=== PATIENT | female | born 1945 | race Caucasian/White ===

== ENCOUNTER 2017-06-16 05:57 | Inpatient (IN) ==
[2017-06-16] MEDS ORDERED: FUROSEMIDE 40 MG/4 ML INJECTION IVP ONE (06:33)
[2017-06-16] MEDS: SALINE FLUSH 10ml SYRINGE IVF PRN (06:45)
--- NOTE | 2017-06-16 06:57 | Emergency Department Report ---
SOB HPI - General Chief Complaint: Shortness of Breath/Dyspnea Stated Complaint: diff beathing Time Seen by Provider: 06/16/17 06:06 Source: patient, family, old records reviewed Mode of arrival: ambulatory - History of Present Illness 71yo woman represented to the ER for evaluation of dyspnea. Pt was seen in this facility 4 days ago; was dx'ed with a COPD exacerbation and treated appropriately. Pt had an extensive workup at that time, including for a PE. Pt states that she was satisfied with her care on Thursday and left feeling much better than before. Pt represented last evening for recurrent dyspnea; after discussion with pt regarding expectations and potential work up, pt declined a full workup. Pt felt much better after a single neb and discussion of increasing her prednisone. She felt like the bug spray or powder at her home was making her sx worse; pt went to stay with son overnight. This AM, pt states that she was actually dyspneic prior to leaving the ER, she really didn't say that she didn't want a full workup, and she feels that she was not actually evaluated or treated last night, especially in comparison to how she was treated on Thursday. Pt feels that 2 hours in the ER, just wasn't enough to do anything, and she had blood work x2 on Sat. Pt recently changed from Dr. Marin to Dr. Novoa and ennumerates all of the reasons why she doesn' t like Dr. Marin. She recently changed from Dr. Douglas to Dr. Polanco, and is bitter about Dr. Douglas's change in practice. When asked about her frequent physician changes, pt states that she doesn't change physicians, but then relates how she has made similar changes in the past due to dissatisfaction. Pt states that she had a PFT ~ a decade ago. Dr. Douglas sent pt for repeat PFTs in the last few years; pt went, but 'the new tech didn't know what he was doing and couldn't complete the testing.' Pt never went back to complete PFTs. Pt presents to the ER this AM with her son. Both are agitated, angry, and demanding. Son feels that pt was not treated appropriately; pt states that she is dyspneic at rest and cannot walk without losing breath. Both want pt ' thoroughly' evaluated and treated. MD Complaint: shortness of breath Onset (ago): day(s) Severity: moderate Consistency/Duration: intermittent Relieving factors: oxygen, bronchodilators, medication Exacerbating factors: lying flat, exertion, movement, coughing Known history of: COPD, congestive heart failure Treatment prior to arrival: bronchodilator - Related Data Home oxygen amount: none Home Medications Medication Instructions Recorded Confirmed Clopidogrel Bisulfate [Plavix] 75 mg PO DAILY #0 06/25/09 06/16/17 Esomeprazole Magnesium [Nexium] 40 mg PO DAILY #0 06/25/09 06/16/17 Metoprolol Succinate [Toprol Xl] 100 mg PO HS #0 06/25/09 06/16/17 Nitroglycerin [Nitrostat] 0.4 mg SL PRN #0 06/25/09 06/16/17 hydroCHLOROthiazide 25 mg PO DAILY #0 06/25/09 06/16/17 [Hydrochlorothiazide] Aspirin [Aspir 81] 81 mg PO DAILY #30 tab 06/25/16 06/16/17 Losartan [Cozaar] 50 mg PO HS 06/13/17 06/16/17 [place]-3/Dha/Epa/Fish Oil [Fish Oil 1 each PO DAILY 06/13/17 06/16/17 1,000 mg Softgel] Previous Rx's Medication Instructions Recorded predniSONE [Prednisone] 40 mg PO AC #10 tab 06/13/17 Allergies Allergy/AdvReac Type Severity Reaction Status Date / Time dexlansoprazole Allergy Intermediate Verified 06/16/17 03:27 [From Dexilant] doxycycline Allergy Intermediate Rash Verified 06/16/17 03:27 tramadol Allergy Intermediate MOUTH RASH Verified 06/16/17 03:27 ezetimibe Allergy Mild TONGUE SORE Verified 06/16/17 03:27 Penicillins Allergy Mild TONGUE Verified 06/16/17 03:27 GETS SORE amoxicillin Allergy Unknown Verified 06/16/17 03:27 ciprofloxacin Allergy Unknown COLD Verified 06/16/17 03:27 estradiol Allergy Unknown Verified 06/16/17 03:27 gemfibrozil Allergy Unknown Verified 06/16/17 03:27 lisinopril Allergy Unknown COUGH Verified 06/16/17 03:27 terconazole Allergy Unknown "BREAK OUT" Verified 06/16/17 03:27 clindamycin AdvReac Severe hurts Verified 06/16/17 03:27 stomach azithromycin AdvReac Intermediate Diarrhea Verified 06/16/17 03:27 clotrimazole AdvReac Intermediate Verified 06/16/17 03:27 pantoprazole AdvReac Intermediate Headache Verified 06/16/17 03:27 fenofibrate AdvReac Mild "SICK AT Verified 06/16/17 03:27 STOMACH" metronidazole AdvReac Mild "DIZZY, Verified 06/16/17 03:27 LOW BLOOD PRESSURE" niacin AdvReac Mild "TIRED, Verified 06/16/17 03:27 FEEL BAD" propoxyphene AdvReac Mild "HURTS Verified 06/16/17 03:27 STOMACH simvastatin AdvReac Mild "TIRED, Verified 06/16/17 03:27 FACE BREAK OUT" pitavastatin [From Livalo] AdvReac Unknown Verified 06/16/17 03:27 Cephalexin Monohydrate Allergy Unknown Uncoded 06/16/17 03:27 rosuvastatin calcium Allergy Unknown Uncoded 06/16/17 03:27 trichloroacetic acid Allergy Unknown Uncoded 06/16/17 03:27 Unclassified Drug AdvReac Unknown "ZETREA" Uncoded 06/16/17 03:27 Unknown Drug Review of Systems All systems: reviewed and negative except as stated Cardiovascular: Reports: as per HPI, dyspnea on exertion Respiratory: Reports: as per HPI, dyspnea PFSH Patient Stated Medical History Hypertension Yes Myocardial Infarction Yes Chronic Obstructive Pulmonary Yes Disease (COPD) Gastroesophageal Reflux Yes Disease Post Menopausal Yes Medical History Updates: Allergic rhinitis Surgical History: Appendectomy. Tubal ligation. Cardiac catheterization - Social History Smoking status: Former smoker Physical Exam - Limitations Limitations: no limitations - General General appearance: alert, in no apparent distress, obese - Normal Exams: Head:: Normocephalic without trauma Eyes:: Pupils are PERRLA w/ EOMI, No scleral icterus, irritation, or foreign bodies noted ENMT:: No facial trauma, nasal exudates, pharyngeal erythema, or exudates are noted Neck:: Full range of motion, without adenopathy Lymphatic:: No lymphadenopathy Musculoskeletal:: No tenderness, or deformity noted Integumentary:: No rashes, hives, or bruising noted Neurological:: Patient is alert, and oriented Psychiatric:: Patient exhibits, appropriate attention - Chest Chest inspection: Present: normal inspection, symmetric chest wall rise, rash ( sebhorreic keratoses). Absent: tenderness - Respiratory Respiratory exam: Present: crackles (Coarse throughout both lung bases). Absent : normal lung sounds bilaterally, respiratory distress, wheezes, prolonged expiratory phase - Cardiovascular Cardiovascular exam: Present: regular rate, normal rhythm, normal heart sounds, +S1, +S2. Absent: systolic murmur, diastolic murmur, +S3, +S4 - Abdominal Exam Abdominal exam: Present: soft, normal bowel sounds. Absent: distention, tenderness, guarding, rebound, rigidity, psoas sign, obturator sign, Ramírez's sign, hernia Course - Consultations Consultation #1: Dr. Novoa: Recommends contacting hospitalist for admission for further eval, since this is pts third visit to the ER. Time: 08:50 Consultation #2: Hospitalist: En route to hospital; will admit. Time: 08:55 Vital Signs Temperature 98.0 F 06/16/17 06:06 Pulse Rate 75 06/16/17 06:06 Respiratory Rate 26 H 06/16/17 06:06 Blood Pressure 184/81 H 06/16/17 06:06 Pulse Oximetry 90 06/16/17 06:06 Temperature 98.0 F 06/16/17 06:06 Pulse Rate 71 06/16/17 08:38 Respiratory Rate 32 H 06/16/17 08:38 Blood Pressure 127/64 06/16/17 08:38 Pulse Oximetry 96 06/16/17 08:38 Shortness of Breath/Dyspnea - MDM Narrative Medical decision making narrative: Long discussion held with pt and son regarding her prior dx, previous tx, ddx, expectations, and plan of care. Discussed case with Dr. Millan, who repeatedly asserted his discussion with pt regarding extent of workup and pts insistence on treatment without repeating the work up. His documentation from that encounter is consistent with his statement. Pts son was not present for that encounter. Given pts other dx's, the timing of the encounter (late at night), and pts medical condition (either truly dyspneic, or anxious regarding her feeling of dyspnea), it is possible that there was 'miscommunication' with pt regarding the extent of her work up, but it is more likely that pt does not remember her choice. It is also possible that pt has an underlying personality disorder that would predispose her to blame her physician for her condition ( see pts statements regarding frequently changing physicians and the reasons for doing so). After discussion with pt and son and thorough PE, will evaluate pt for causes of her dyspnea. Pt does not have any s/s of Pulm Emb at this time, and is taking plavix. Will treat empirically for CHF exacerbation, given pts basilar crackles and dyspnea not responding to steroids/nebs. It is likely that pts treatment for COPD exacerbation has worsened her CHF acutely. Pt does not take a loop diuretic at home. Pt and son voiced understanding of dx, prognosis, tx, and f/u need. - Differential Diagnosis Likely: acute exacerbation of chronic obstructive airways disease, congestive heart failure (Medication nonadherence), community acquired pneumonia - Medical Records Attestation: I reviewed the patient's medical records. - Lab Data Attestation: I reviewed the patient's lab results. Result diagrams: 06/16/17 07:17 06/16/17 07:17 Lab Results 06/16/17 06/16/17 06/16/17 Range/Units 07:17 07:17 07:24 WBC 12.8 H (4.5-11.0) T/MM3 RBC 4.58 (4.00-5.20) M/MM3 Hgb 12.2 (12-16) GM/DL Hct 38.8 (36-46) % MCV 84.7 (80-100) UM3 MCH 26.6 (26-34) UUG MCHC 31.4 (31-37) GM/DL RDW Std Deviation 45.9 (36.9-50.2) FL Plt Count 290 (130-400) T/MM3 MPV 10.6 (9.4-12.4) UM3 Immature Gran % (Auto) 0.3 (0.0-0.5) % Neut % (Auto) 78.8 H (33-66) % Lymph % (Auto) 13.8 L (23-45) % [place] % (Auto) 6.7 (0-9.0) % Eos % (Auto) 0.2 (0-4) % Baso % (Auto) 0.2 (0-2) % Neut # 10.1 H (1.8-7.7) T/MM3 Lymph # 1.8 (1-4.8) T/MM3 Morrill # 0.9 H (0-0.8) T/MM3 Eos # 0.0 (0-0.5) T/MM3 Baso # 0.0 (0-0.2) T/MM3 Abs Immat Gran (auto) 0.04 H (0.00-0.03) T/MM3 Turbidity < 20 (0-20) Sodium 144 (134-144) MEQ/L Potassium 3.7 (3.6-5) MEQ/L Chloride 108 H (98-107) MEQ/L Carbon Dioxide 26 (22-30) MEQ/L Anion Gap 10 (5-15) MEQ/L BUN 22.0 H D (7-17) MG/DL Creatinine 0.8 (0.7-1.2) MG/DL GFR Calculation 70 BUN/Creatinine Ratio 28 H (6-26) RATIO Glucose 118 H (65-110) MG/DL Calculated Osmolality 281 H (261-280) MOSM/KG Calcium 9.1 (8.4-10.2) MG/DL Icterus Index < 2 (0-7) Troponin I 0.049 D (0-0.12) ng/ml B-Natriuretic Peptide 2010 H (0-175) pg/mL Specimen Hemolysis < 15 (0-25) Ur Collection Type Urine, clean catch Urine Color Yellow (YELLOW) Urine Clarity Clear Urine pH 5.5 (5.0-8.0) Ur Specific [place] 1.010 L (1.015-1.025) Urine Protein Negative (NEGATIVE) Urine Glucose (UA) Negative (NEGATIVE) Urine Ketones Negative (NEGATIVE) Urine Occult Blood Negative (NEGATIVE) Urine Nitrate Negative (NEGATIVE) Urine Bilirubin Negative (NEGATIVE) Urine Urobilinogen 0.2 (NORMAL) EU/DL Ur Leukocyte Esterase Trace A (NEGATIVE) Urinalysis Comment Microscopic not ind. - Radiology Data Attestation: I reviewed the patient's radiology results. CXR: FINDINGS: Increasing interstitial markings compared to the prior study. Motion artifact obscures the lung [place] on the lateral view. There is no pleural effusion or pneumothorax. The heart size, mediastinal contours and pulmonary vascularity are stable. IMPRESSION: Worsening interstitial markings could represent atypical/viral pneumonia or mild edema. - EKG Data EKG #1 EKG attestation: Yes: I reviewed and interpreted this EKG. EKG shows normal: sinus rhythm, axis, ST-T waves [place]/QRS: LBBB Heart block present: 1st Degree Interpretation: no acute changes Disposition Clinical Impression: CHF exacerbation Qualifiers: Congestive heart failure type: unspecified congestive heart failure type Qualified Code(s): I50.9 - Heart failure, unspecified [place] [facility] [place] Prescriptions: No Action Clopidogrel Bisulfate [Plavix] 75 mg PO DAILY #0 Esomeprazole Magnesium [Nexium] 40 mg PO DAILY #0 [place]-3/Dha/Epa/Fish Oil [Fish Oil 1,000 mg Softgel] 1 each PO DAILY predniSONE [Prednisone] 40 mg PO AC #10 tab hydroCHLOROthiazide [Hydrochlorothiazide] 25 mg PO DAILY #0 Nitroglycerin [Nitrostat] 0.4 mg SL PRN #0 Metoprolol Succinate [Toprol Xl] 100 mg PO HS #0 Aspirin [Aspir 81] 81 mg PO DAILY #30 tab Losartan [Cozaar] 50 mg PO HS Referrals: Tanisha Kennedy MD [Family Provider] - Time of Disposition: 09:16 - Seen By: physician
--- NOTE | 2017-06-16 07:58 | XRay Report ---
INDICATION: Dyspnea PROCEDURE: CHEST 2-VIEWS UPRIGHT (PA & LAT) Encounter: Initial COMPARISON: June 13, 2017 FINDINGS: Increasing interstitial markings compared to the prior study. Motion artifact obscures the lung [place] on the lateral view. There is no pleural effusion or pneumothorax. The heart size, mediastinal contours and pulmonary vascularity are stable. IMPRESSION: Worsening interstitial markings could represent atypical/viral pneumonia or mild edema. .
[2017-06-16 09:55] VITALS: BMI 46.7
--- NOTE | 2017-06-16 10:03 | History & Physical Report ---
<Yazmin Mirza V - Last Filed: 06/16/17 09:56> History of Present Illness Date: 06/16/17 Chief complaint: Dyspnea HPI: Patient is a 71 year old female who has been in the ER three times over the past 4 days for evaluation of acute dyspnea. On Thursday she had labs and CT chest completed. All were needed for acute process. Patient felt much better and was discharged home on prednisone burst and inhalers. She reported that she felt better over the next 24 hours, however, last evening, awoke at about 1 a.m. to have acute dyspnea again. She drove herself to the emergency room where she was reexamined. Initially on arrival, she was reported to be hypoxia with room saturations of 89%. She was given a breathing treatment in which hypoxia improved in room air saturations were 92-96%. Her prednisone was increased to 60 milligrams. She declined further workup and was discharged home. She again today. Becomes increasingly short of breath with exertion thus presenting to the emergency room again for further acute evaluation. Laboratory studies today revealed white count 12.8, hemoglobin 12.2, hematocrit 38.8, neutrophils 70%. REM is 144, potassium 3.8, BUNs 22, creatinine 0.8, glucose 118. Troponin is 0.041, proBNP 2010. Urinalysis is negative. Chest x- ray does reveal worsening interstitial markings. Over the EKG reveals sinus rhythm with left bundle branch block. Patient is noted to be Breathing 30 times a minute. No episodes of hypoxia during emergency room valuation. Garcia continues to become significantly symptomatic with minimal exertion. Given these symptoms. The hospitalist services were contacted and accepted patient for outpatient admission for further observation and workup. Review of Systems All systems PM: 10-point ROS was reviewed, no additional remarkable complaints except - Respiratory Respiratory: Present: as per HPI, cough, dyspnea, dyspnea on exertion PFSH CAD with OR history COPD Hypertension GERD Medical History Updates: Allergic rhinitis Surgical History: Appendectomy. Cholecystectomy. Tonsillectomy. Tubal ligation. Cardiac catheterization. Cardiac stent- 2010 Family History: Father at age 52 of an OR. Mother-dementia. Paternal grandfather at 60 of OR Maternal grandfather in his 60s of acute stroke - Social History Smoking status: Former smoker (, quit 50 years ago) Substance use type: does not use Alcohol intake frequency: does not drink Current residence: Apartment/Private Home Social history: PCP Dr Husam Kennedy Biomed Tech- Dr Novoa Medications Home Medications Medication Instructions Recorded Confirmed Type Clopidogrel Bisulfate [Plavix] 75 mg PO DAILY #0 06/25/09 06/16/17 History Esomeprazole Magnesium [Nexium] 40 mg PO DAILY #0 06/25/09 06/16/17 History Metoprolol Succinate [Toprol Xl] 100 mg PO PM #0 06/25/09 06/16/17 History Nitroglycerin [Nitrostat] 0.4 mg SL PRN #0 06/25/09 06/16/17 History hydroCHLOROthiazide 12.5 mg PO WESA #0 06/25/09 06/16/17 History [Hydrochlorothiazide] Aspirin [Aspir 81] 81 mg PO DAILY #30 tab 06/25/16 06/16/17 History Losartan [Cozaar] 50 mg PO PM 06/13/17 06/16/17 History [place]-3/Dha/Epa/Fish Oil [Fish Oil 1 cap PO DAILY 06/13/17 06/16/17 History 1,000 mg Softgel] Alirocumab [Praluent Pen] 75 mg SQ Q2WKS 06/16/17 06/16/17 History Hydrocodone/APAP 7.5/325 [[place] 1 tab PO Q4H PRN 06/16/17 06/16/17 History 7.5/325] Ipatropium/Albuterol [Combivent 2 puff INH QID PRN 06/16/17 06/16/17 History Respimat Inhaler] Mometasone Furoate [Mometasone 1 spray EA NOSTRIL DAILY PRN 06/16/17 06/16/17 History Furoate] Allergies Allergy/AdvReac Type Severity Reaction Status Date / Time dexlansoprazole Allergy Intermediate Verified 06/16/17 11:45 [From Dexilant] doxycycline Allergy Intermediate Rash Verified 06/16/17 11:45 tramadol Allergy Intermediate MOUTH RASH Verified 06/16/17 11:45 ezetimibe Allergy Mild TONGUE SORE Verified 06/16/17 11:45 Penicillins Allergy Mild TONGUE Verified 06/16/17 11:45 GETS SORE amoxicillin Allergy Unknown Verified 06/16/17 11:45 ciprofloxacin Allergy Unknown COLD Verified 06/16/17 11:45 estradiol Allergy Unknown Verified 06/16/17 11:45 gemfibrozil Allergy Unknown Verified 06/16/17 11:45 lisinopril Allergy Unknown COUGH Verified 06/16/17 11:45 terconazole Allergy Unknown "BREAK OUT" Verified 06/16/17 11:45 clindamycin AdvReac Severe hurts Verified 06/16/17 11:45 stomach azithromycin AdvReac Intermediate Diarrhea Verified 06/16/17 11:45 clotrimazole AdvReac Intermediate Verified 06/16/17 11:45 pantoprazole AdvReac Intermediate Headache Verified 06/16/17 11:45 fenofibrate AdvReac Mild "SICK AT Verified 06/16/17 11:45 STOMACH" metronidazole AdvReac Mild "DIZZY, Verified 06/16/17 11:45 LOW BLOOD PRESSURE" niacin AdvReac Mild "TIRED, Verified 06/16/17 11:45 FEEL BAD" propoxyphene AdvReac Mild "HURTS Verified 06/16/17 11:45 STOMACH simvastatin AdvReac Mild "TIRED, Verified 06/16/17 11:45 FACE BREAK OUT" pitavastatin [From Livalo] AdvReac Unknown Verified 06/16/17 11:45 Cephalexin Monohydrate Allergy Unknown Uncoded 06/16/17 11:45 rosuvastatin calcium Allergy Unknown Uncoded 06/16/17 11:45 trichloroacetic acid Allergy Unknown Uncoded 06/16/17 11:45 Unclassified Drug AdvReac Unknown "ZETREA" Uncoded 06/16/17 11:45 Unknown Drug Exam Vital Signs: Temperature 98.0 F 06/16/17 06:06 Pulse Rate 71 06/16/17 08:38 Respiratory Rate 32 H 06/16/17 08:38 Blood Pressure 127/64 06/16/17 08:38 Pulse Oximetry 96 06/16/17 08:38 Height/Weight/BMI: Height 1.57 m Weight 116.1 kg Body Mass Index 46.7 Results - Labs CBC & Chem 7: 06/16/17 07:17 06/16/17 07:17 Assessment and Plan (1) Dyspnea Current visit: Yes Status: Acute (2) Tachypnea Current visit: Yes Status: Acute DVT Prophylaxis: SCD's Resuscitation Status: Full Code Assessment and Plan: Impression Acute Dyspnea Tachypnea Leukocytosis COPD ?CHF Hypertension Hyperlipidemia CAD OA Plan Admit to outpatient observation for acute dyspnea and tachypnea Will continue with Prednisone 60 mg daily starting now for pulmonary inflammation Schedule DuoNeb QID and Pulmicort BID Obtain ECHO and consult Dr Sommer lucas driving instructor. She was scheduled to see him at the clinic today She was given a one time dose of Lasix 40 mg IV this morning in the ER. Noted to be hypertensive however she has not had usual home medications. Will review meds once reconciled. Suspect mild leukocytosis is secondary to steroid use. Will continue to monitor. SCD to bilateral lower ext for DVT prophylaxis Will discuss further orders and plan of care with attending, Dr Gentile At time of discharge medical care is to return to PCP Dr Husam Kennedy Hospital Course Summary Disclaimer: The visit summary below is not to be considered part of the above Progress Note. Hospital Course: 06/16/17 10:20 Impression Acute Dyspnea Tachypnea Leukocytosis COPD ?CHF Hypertension Hyperlipidemia CAD OA Plan Admit to outpatient observation for acute dyspnea and tachypnea Will continue with Prednisone 60 mg daily starting now for pulmonary inflammation Schedule DuoNeb QID and Pulmicort BID Obtain ECHO and consult Dr Sommer lucas driving instructor. She was scheduled to see him at the clinic today She was given a one time dose of Lasix 40 mg IV this morning in the ER. Noted to be hypertensive however she has not had usual home medications. Will review meds once reconciled. Suspect mild leukocytosis is secondary to steroid use. Will continue to monitor. SCD to bilateral lower ext for DVT prophylaxis Will discuss further orders and plan of care with attending, Dr Gentile At time of discharge medical care is to return to PCP Dr Husam Kennedy <Grey Gentile - Last Filed: 06/16/17 18:07> History of Present Illness Date: 06/16/17 [facility] Patient Stated Medical History Hypertension Yes Myocardial Infarction Yes: X3 Chronic Obstructive Pulmonary Yes Disease (COPD) Gastroesophageal Reflux Yes Disease Post Menopausal Yes Exam Vital Signs: Temperature 97.0 F 06/16/17 15:16 Pulse Rate 75 06/16/17 15:16 Respiratory Rate 18 06/16/17 15:42 Blood Pressure 135/63 06/16/17 15:16 Pulse Oximetry 94 06/16/17 15:16 Height/Weight/BMI: Height 1.57 m Weight 116.1 kg Body Mass Index 46.7 Results - Labs CBC & Chem 7: 06/16/17 07:17 06/16/17 07:17 Assessment and Plan (1) Dyspnea Current visit: Yes Status: Acute (2) Tachypnea Current visit: Yes Status: Acute Assessment and Plan: Impression Acute Dyspnea Tachypnea Leukocytosis COPD ?CHF Hypertension Hyperlipidemia CAD OA Morbid obesity with BMI 46.8 Have independently interviewed and examined patient. Chart reviewed. Case discussed with ED physician and my SHAPER SET UP OPERATOR. Care plan developed with my supervision ; agree with above. Patient has been having increasing dyspnea with exertion for the past several days. See in ED on 06/13 secondary to SOA. Treated and symptoms improved. Declined admission at that time as feeling better in ED. Since then, continues to be very SOA. Breathing worse with activities. Chest feels full and heavy. Very minimal cough. No chest congestion or sputum. Denies pain with breathing. No f/c. Can't tell if she is having increased edema as reports legs always with some swelling (no marked increase that she is aware of). Was seen again in ED yesterday-treated and felt better. However, bu the time she returned home, was completely out of breath. Reports she drove over to her son's and then ultimately represented to ED for reevaluation of her extreme dyspnea. Lungs: decreased breath sounds bilaterally. Expiratory phase prolonged. No wheezes or cough with forced expiration. Little air movement. CV: regular AB; soft Obese nt/nd BS present MSE: awake alert appropriate Plan: OBS for further evaluation of her cardiopulmonary status. Neb treatments of DuoNeb and budesonide. Continue Prednisone started in ED. Add Mucinex and Acapella. Continue home medications. Consult Dr Novoa for cardiac evaluation. SCD for DVT prevention (and to help minimize edema). Monitor lab. Full code as per her requests. Care to return to Dr Kennedy at time of discharge from [facility] [place] Hospital Course Summary Disclaimer: The visit summary below is not to be considered part of the above Progress Note.
[2017-06-16] MEDS: ALBUTEROL/IPRATROPIUM 2.5mg-0.5mg/3ml NEB AEROSOL SCH ×3 (10:40→19:22)
--- NOTE | 2017-06-16 11:46 | Cardiology Consult Note ---
History of Present Illness Consult date: 06/16/17 <Ange Holden - 06/16/17 11:50> Requesting physician: Grey Gentile <Ange Holden M - 06/16/17 11:50> Consult reason: congestive heart failure <Ange Holden - 06/16/17 11:50> Chief complaint: Dyspnea <Ange Holden - 06/16/17 11:50> History of present illness: Glenys is a 71 year old female who is known to Dr. Novoa with a history of CAD, HTN and HLD who was last seen in clinic in November for preprocedural cardiac exam because she reported having an PA S/P her last knee surgery. Her last heart cath was performed by Dr. Sidney Marin 06/25/2016 and showed EF 60%, RCA 60-70%, OM <50%, LAD 20-30%, Ostium 40-50%. Last echo was done on 02/12/2011 and showed EF 56%, trace AI, trivial TI, PA pressure of 21 mmHg. She has been in the ED three times over the past 4 days for evaluation of acute dyspnea. On Thursday she had labs and CT chest completed. All were needed for acute process. Patient felt much better and was discharged home on prednisone burst and inhalers. She reported that she felt better over the next 24 hours, however , last evening, awoke at about 1 a.m. to have acute dyspnea again. She drove herself to the emergency room where she was reexamined. Initially on arrival, she was reported to be hypoxia with room saturations of 89%. She was given a breathing treatment in which hypoxia improved in room air saturations were 92-96 %. Her prednisone was increased to 60 milligrams. She declined further workup and was discharged home. She again today. Becomes increasingly short of breath with exertion thus presenting to the emergency room again for further acute evaluation. Laboratory studies today revealed white count 12.8, hemoglobin 12.2, hematocrit 38.8, neutrophils 70%. REM is 144, potassium 3.8, BUNs 22, creatinine 0.8, glucose 118. Troponin is 0.041, proBNP 2010. Urinalysis is negative. Chest x- ray does reveal worsening interstitial markings. The EKG reveals sinus rhythm with left bundle branch block. The hospitalist services were contacted and accepted patient for outpatient admission for further observation and workup. Dr. Novoa is being consulted for evaluation of CAD, CHF and hypoxia. <Ange Holden 06/16/17 11:50> Review of Systems - Constitutional Constitutional: Absent: chills, fever(s) <Ange Holden 06/16/17 16:37> - EENMT Eyes: Absent: change in vision <Ange Holden 06/16/17 16:37> Balance: Absent: vertigo <Ange Holden 06/16/17 16:37> Mouth/Throat: Absent: sore throat, scratchy throat <Ange Holden 06/16/17 16:37> - Cardiovascular Cardiovascular: Present: chest pain, dyspnea on exertion. Absent: palpitations , syncope <Ange Holden 06/16/17 16:37> - Respiratory Respiratory: Present: dyspnea. Absent: cough <Ange Holden 06/16/17 16:37 > - Gastrointestinal Gastrointestinal: Absent: diarrhea, nausea, vomiting <Ange Holden 16:37> - Genitourinary Genitourinary: Absent: dysuria <Ange Holden 06/16/17 16:37> - Neurological Neurological: Absent: dizziness <Ange Holden 06/16/17 16:37> - Endocrine Endocrine: Absent: palpitations <Ange Holden 06/16/17 16:37> [facility] Patient Stated Medical History Hypertension Yes Myocardial Infarction Yes: X3 Chronic Obstructive Pulmonary Yes Disease (COPD) Gastroesophageal Reflux Yes Disease Post Menopausal Yes <Ange Holden 06/16/17 11:50> Medical History Updates: Asthmas. Allergic rhinitis. CAD. HTN. HLD < Ange Holden 06/16/17 11:50> Surgical History: Appendectomy. Cholecystectomy. Tonsillectomy. Tubal ligation. Cardiac catheterization. Cardiac stent- 2010 <Ange Holden 11:50> Family History: Father at age 52 of an PA. Mother-dementia. Paternal grandfather at 60 of PA Maternal grandfather in his 60s of acute stroke <Ange Holden /26/17 11:50> - Social History Smoking status: Former smoker <Ange Holden 06/16/17 11:50> Substance use type: does not use <Ange Holden 06/16/17 11:50> Alcohol intake frequency: does not drink <Ange Holden 06/16/17 11:50> Housing: apartment <Ange Holden 06/16/17 11:50> Household members: none <Ange Holden 06/16/17 11:50> Current occupational status: retired <Ange Holden 06/16/17 11:50> Current residence: Apartment/Private Home <Ange Holden 06/16/17 11:50> Medications Home Medications Medication Instructions Recorded Confirmed Type Clopidogrel Bisulfate [Plavix] 75 mg PO DAILY #0 06/25/09 06/16/17 History Esomeprazole Magnesium [Nexium] 40 mg PO DAILY #0 06/25/09 06/16/17 History Metoprolol Succinate [Toprol Xl] 100 mg PO PM #0 06/25/09 06/16/17 History Nitroglycerin [Nitrostat] 0.4 mg SL PRN #0 06/25/09 06/16/17 History hydroCHLOROthiazide 12.5 mg PO WESA #0 06/25/09 06/16/17 History [Hydrochlorothiazide] Aspirin [Aspir 81] 81 mg PO DAILY #30 tab 06/25/16 06/16/17 History Losartan [Cozaar] 50 mg PO PM 06/13/17 06/16/17 History [place]-3/Dha/Epa/Fish Oil [Fish Oil 1 cap PO DAILY 06/13/17 06/16/17 History 1,000 mg Softgel] Alirocumab [Praluent Pen] 75 mg SQ Q2WKS 06/16/17 06/16/17 History Hydrocodone/APAP 7.5/325 [[place] 1 tab PO Q4H PRN 06/16/17 06/16/17 History 7.5/325] Ipatropium/Albuterol [Combivent 2 puff INH QID PRN 06/16/17 06/16/17 History Respimat Inhaler] Mometasone Furoate [Mometasone 1 spray EA NOSTRIL DAILY PRN 06/16/17 06/16/17 History Furoate] <Vickie Novoain - 06/18/17 13:26> Allergies Allergy/AdvReac Type Severity Reaction Status Date / Time dexlansoprazole Allergy Intermediate Verified 06/16/17 11:45 [From Dexilant] doxycycline Allergy Intermediate Rash Verified 06/16/17 11:45 tramadol Allergy Intermediate MOUTH RASH Verified 06/16/17 11:45 ezetimibe Allergy Mild TONGUE SORE Verified 06/16/17 11:45 Penicillins Allergy Mild TONGUE Verified 06/16/17 11:45 GETS SORE amoxicillin Allergy Unknown Verified 06/16/17 11:45 ciprofloxacin Allergy Unknown COLD Verified 06/16/17 11:45 estradiol Allergy Unknown Verified 06/16/17 11:45 gemfibrozil Allergy Unknown Verified 06/16/17 11:45 lisinopril Allergy Unknown COUGH Verified 06/16/17 11:45 terconazole Allergy Unknown "BREAK OUT" Verified 06/16/17 11:45 clindamycin AdvReac Severe hurts Verified 06/16/17 11:45 stomach azithromycin AdvReac Intermediate Diarrhea Verified 06/16/17 11:45 clotrimazole AdvReac Intermediate Verified 06/16/17 11:45 pantoprazole AdvReac Intermediate Headache Verified 06/16/17 11:45 fenofibrate AdvReac Mild "SICK AT Verified 06/16/17 11:45 STOMACH" metronidazole AdvReac Mild "DIZZY, Verified 06/16/17 11:45 LOW BLOOD PRESSURE" niacin AdvReac Mild "TIRED, Verified 06/16/17 11:45 FEEL BAD" propoxyphene AdvReac Mild "HURTS Verified 06/16/17 11:45 STOMACH simvastatin AdvReac Mild "TIRED, Verified 06/16/17 11:45 FACE BREAK OUT" pitavastatin [From Livalo] AdvReac Unknown Verified 06/16/17 11:45 Cephalexin Monohydrate Allergy Unknown Uncoded 06/16/17 11:45 rosuvastatin calcium Allergy Unknown Uncoded 06/16/17 11:45 trichloroacetic acid Allergy Unknown Uncoded 06/16/17 11:45 Unclassified Drug AdvReac Unknown "ZETREA" Uncoded 06/16/17 11:45 Unknown Drug <Roman Novoa - 06/18/17 13:26> Exam Vital signs: Temperature 97.5 F 06/18/17 11:26 Pulse Rate 74 06/18/17 11:26 Respiratory Rate 18 06/18/17 11:26 Blood Pressure 115/65 06/18/17 11:26 Pulse Oximetry 91 06/18/17 11:26 <Rmoan Novoa - 06/18/17 13:26> Temperature 96.8 F 06/16/17 10:09 Pulse Rate 67 06/16/17 10:59 Respiratory Rate 20 06/16/17 10:45 Blood Pressure 170/71 H 06/16/17 10:09 Pulse Oximetry 99 06/16/17 10:45 <Ange Holden 06/16/17 11:50> - Constitutional no acute distress, obese, cooperative <Ange Holden 06/16/17 16:37> - Routine HEENT Exam Head: Present: normocephalic <Ange Holden 06/16/17 16:37> ENT: Present: mucous membranes moist <Ange Holden 06/16/17 16:37> - Routine Neck Exam Absent: JVD, carotid bruit <Ange Holden 06/16/17 16:37> - Routine Chest/Breast/Axilla Exam Chest wall: Present: tenderness <Ange Holden [facility] 06/16/17 16:37> - Routine Respiratory Exam Present: CTA bilaterally, rales (bibasilar). Absent: wheezes <Ange Holden [facility] 06/16/17 16:37> - Routine Cardiovascular Exam Present: RRR, no murmur. Absent: JVD <Ange Holden [facility] 06/16/17 16:37> - Routine Abdominal Exam Present: soft, normoactive bowel sounds <Ange Holden [facility] 06/16/17 16:37> - Routine Extremities Exam Present: edema <Ange Holden [facility] 06/16/17 16:37> - Routine Skin Exam Present: intact, dry, warm <Ange Holden 06/16/17 16:37> - Routine Neurological Exam Present: alert, oriented X3 <Ange Holden 06/16/17 16:37> - Routine Psychiatric Exam Present: normal affect, normal thought process <Ange Holden M - 06/16/17 16: 37> Results 06/18/17 04:22 06/18/17 04:22 <Roman Novoa - 06/18/17 13:26> Cardiac Enzymes 06/17/17 06/17/17 Range/Units 17:38 23:26 Troponin I 1.430 H 1.140 H (0-0.12) ng/ml CBC 06/18/17 Range/Units 04:22 WBC 15.3 H (4.5-11.0) T/MM3 RBC 4.87 (4.00-5.20) M/MM3 Hgb 13.1 D (12-16) GM/DL Hct 40.3 D (36-46) % Plt Count 361 (130-400) T/MM3 Neut # (Auto) Not performed Lymph # (Auto) Not performed Mineral # (Auto) Not performed Eos # (Auto) Not performed Baso # (Auto) Not performed Comprehensive Metabolic Panel 06/18/17 Range/Units 04:22 Sodium 141 (134-144) MEQ/L Potassium 3.6 (3.6-5) MEQ/L Chloride 99 (98-107) MEQ/L Carbon Dioxide 31 H (22-30) MEQ/L BUN 28.0 H (7-17) MG/DL Creatinine 0.9 (0.7-1.2) MG/DL Glucose 119 H (65-110) MG/DL Calcium 8.4 (8.4-10.2) MG/DL Intake and Output 06/17/17 06/18/17 06/18/17 22:59 06:59 14:59 Intake Total 350 / 350 150 / 150 640 / 640 Output Total 1515 / 1515 1150 / 1150 125 / 125 Balance -1165 / -1165 -1000 / -1000 515 / 515 Intake: Oral 350 / 350 150 / 150 640 / 640 Output: Urine Amount (Catheter) 1515 / 1515 1150 / 1150 125 / 125 Other: Urine Appearance Clear Clear Clear Urine Color Yellow Yellow Yellow # Voids 1 Weight 112.9 kg 112 kg Patient Weight 06/19/17 06:59 Weight 112 kg <Roman Novoa - 06/18/17 13:26> Intake and Output 06/15/17 06/16/17 06/16/17 22:59 06:59 14:59 Other: Weight 255 lb 15.307 oz Patient Weight 06/17/17 06:59 Weight 255 lb 15.307 oz <Ange Holden - 06/16/17 11:50> - Imaging and Cardiology Echo: report reviewed <Ange Holden - 06/16/17 16:37> EKG results: image reviewed <Ange Holden - 06/16/17 16:37> Imaging & Cardiology Narrative: Date of Exam: 06/16/17 Type of Exam(s): US echo doppler complete . DATE OF PROCEDURE: June 16, 2017 cc: Office, primary care physician, Dr. Grey Gentile DESCRIPTION This is a two-dimensional echo with spectral Doppler, color-flow and M-mode. It was obtained in a patient with dyspnea. Left atrium is dilated. Left ventricle end-diastolic dimension is normal. Left ventricle wall thickness is increased. LV systolic function is normal with ejection fraction of 61%. Right atrium is dilated. Right ventricle is normal. Aortic root dimension is normal. Mitral annulus is calcified. Mitral valve leaflets are normal with moderate mitral regurgitation. Aortic valve shows fibrocalcific changes with mild restriction on opening motion. Transaortic velocities are increased with peak velocity of 2.68 meters per second with peak gradient of 29 and mean gradient of 11. The aortic valve area was calculated at 1.28 cm2. There is mild aortic insufficiency present. Tricuspid valve shows mild tricuspid regurgitation with mild pulmonary hypertension with estimated pulmonary artery systolic pressure of 39. Pulmonary valve shows no pulmonary insufficiency. There is no pericardial effusion. IMPRESSION 1. Normal LV systolic function with ejection fraction of 61%. 2. Biatrial dilation. 3. Left ventricular hypertrophy. 4. Mitral annulus calcification with moderate mitral regurgitation. 5. [id number] aortic stenosis with a valve area of 1.28 cm2 with mild aortic insufficiency. 6. Mild tricuspid regurgitation with mild pulmonary hypertension with estimated pulmonary artery systolic pressure of 39. 06/16/17 16:34 <Ange Holden - 06/16/17 16:37> EKG interpretations - Dysrhythmias Sinus rhythms and dysrhythmias: sinus rhythm <Ange Holden 06/16/17 16:37> - Blocks, axis, hypertrophy, ST abn AV and intraventricular conduction: left bundle branch block (fixed/intermittent , complete/incomplete) <Ange Holden - 06/16/17 16:37> Assessment and Plan - Attestation Attestation Narrative: 06/18/17 13:26 Recommendation After examining the patient I agree with the above assessment. I am involved in the formulation of the patient's plan of care. <Roman Novoa - 06/18/17 13:26> - Assessment and Plan (1) Dyspnea Current visit: Yes Status: Acute (2) Atherosclerotic heart disease of [place] coronary artery without angina pectoris Current visit: Yes Status: Acute (3) Essential (primary) hypertension Current visit: Yes Status: Acute (4) Mixed hyperlipidemia Current visit: Yes Status: Acute (5) Unstable angina Current visit: Yes Status: Acute (6) Ischemic cardiomyopathy Problem details: History of PA Current visit: Yes Status: Acute (7) Systolic heart failure Current visit: Yes Status: Acute (8) Atrial fibrillation Current visit: Yes Status: Acute (9) NSTEMI (non-ST elevated myocardial infarction) Current visit: Yes Status: Acute <Roman Novoa - 06/18/17 13:26> (1) Ischemic cardiomyopathy (2) Systolic heart failure (3) Atrial fibrillation (4) Unstable angina Current visit: Yes Status: Acute She reports chest tightness and pressure with dyspnea ongoing since Thursday. NPO after midnight for left heart cath in AM (5) Dyspnea Current visit: Yes Status: Acute Reports Acute dyspnea that has only begun on Thursday this past week. She reports chest tightness and pressure (6) Atherosclerotic heart disease of [place] coronary artery without angina pectoris Current visit: Yes Status: Acute Cath images reviewed from last heart cath 06/25/2016. Has CAD, needs repeat heart cath. Lovenox 1mg/kg SQ X1 this evening. Continue Plavix and Aspirin. (7) Essential (primary) hypertension Current visit: Yes Status: Acute Continue home BB, losartan and HCTZ (8) Mixed hyperlipidemia Current visit: Yes Status: Acute <Ange Holden - 06/17/17 13:44> Hospital Course Summary Disclaimer: The visit summary below is not to be considered part of the above Progress Note. <Roman Novoa - 06/18/17 13:26> The visit summary below is not to be considered part of the above Progress Note. <Ange Holden - 06/16/17 11:50> Hospital Course: 06/16/17 10:20 Impression Acute Dyspnea Tachypnea Leukocytosis COPD ?CHF Hypertension Hyperlipidemia CAD OA Plan Admit to outpatient observation for acute dyspnea and tachypnea Will continue with Prednisone 60 mg daily starting now for pulmonary inflammation Schedule DuoNeb QID and Pulmicort BID Obtain ECHO and consult Dr Novoa patients mental health professional. She was scheduled to see him at the clinic today She was given a one time dose of Lasix 40 mg IV this morning in the ER. Noted to be hypertensive however she has not had usual home medications. Will review meds once reconciled. Suspect mild leukocytosis is secondary to steroid use. Will continue to monitor. SCD to bilateral lower ext for DVT prophylaxis Will discuss further orders and plan of care with attending, Dr Gentile At time of discharge medical care is to return to PCP Dr Husam Kennedy 06/16/17 Cardiology Unstable Angina:She reports chest tightness and pressure with dyspnea ongoing since Thursday Dyspnea:Reports Acute dyspnea that has only begun on Thursday this past week. CAD: Cath images reviewed from last heart cath 06/25/2016. Has CAD, needs repeat heart cath. Lovenox 1mg/kg SQ X1 this evening. Continue Plavix and Aspirin. NPO after midnight for left heart cath in AM 06/16/17 16:32 <Ange Holden - 06/16/17 16:37>
[2017-06-16] MEDS: PredniSONE 20 MG TABLET PO SCH (12:20)
--- NOTE | 2017-06-16 12:56 | Echocardiogram ---
. DATE OF PROCEDURE: June 16, 2017 cc: Office, primary care physician, Dr. Grey Gentile DESCRIPTION This is a two-dimensional echo with spectral Doppler, color-flow and M-mode. It was obtained in a patient with dyspnea. Left atrium is dilated. Left ventricle end-diastolic dimension is normal. Left ventricle wall thickness is increased. LV systolic function is normal with ejection fraction of 61%. Right atrium is dilated. Right ventricle is normal. Aortic root dimension is normal. Mitral annulus is calcified. Mitral valve leaflets are normal with moderate mitral regurgitation. Aortic valve shows fibrocalcific changes with mild restriction on opening motion. Transaortic velocities are increased with peak velocity of 2.68 meters per second with peak gradient of 29 and mean gradient of 11. The aortic valve area was calculated at 1.28 cm2. There is mild aortic insufficiency present. Tricuspid valve shows mild tricuspid regurgitation with mild pulmonary hypertension with estimated pulmonary artery systolic pressure of 39. Pulmonary valve shows no pulmonary insufficiency. There is no pericardial effusion. IMPRESSION 1. Normal LV systolic function with ejection fraction of 61%. 2. Biatrial dilation. 3. Left ventricular hypertrophy. 4. Mitral annulus calcification with moderate mitral regurgitation. 5. Zuxf-[id number]-[id number] aortic stenosis with a valve area of 1.28 cm2 with mild aortic insufficiency. 6. Mild tricuspid regurgitation with mild pulmonary hypertension with estimated pulmonary artery systolic pressure of 39. MTDD
[2017-06-16] MEDS: GUAIFENESIN/D-METHORPHAN 600mg/30mg TABLET PO SCH (16:22)
[2017-06-16] MEDS ORDERED: ENOXAPARIN 120 MG/0.8 ML INJECTION SQ ONE (16:30)
[2017-06-16] MEDS: NITROGLYCERIN 2% OINTMENT 1gm PACKET TP SCH (16:51)
[2017-06-16] MEDS ORDERED: HYDROCODONE/APAP 7.5 MG/325 MG TABLET PO PRN (17:41)
[2017-06-16] MEDS: BUDESONIDE INH.SOLN 0.5mg/2ml NEB AEROSOL SCH (19:22)
[2017-06-16] MEDS ORDERED: LOSARTAN 50 MG TABLET PO SCH (20:00)
[2017-06-16] MEDS: FUROSEMIDE 40 MG/4 ML INJECTION IVP SCH (20:15)
[2017-06-16] MEDS ORDERED: DiltiaZEM 25 MG/5 ML INJECTION IVP ONE (21:32)
[2017-06-16] MEDS ORDERED: AMIODARONE 150 MG in NS 100 ML IV ONE (21:33)
[2017-06-16] MEDS ORDERED: AMIODARONE 900 MG in NS 500ml 500 ML IV SCH (21:45)
[2017-06-16] MEDS ORDERED: DiltiaZEM Drip 125 MG in NS 125 ML IV SCH (21:45)
[2017-06-16] MEDS ORDERED: MORPHINE SULFATE 4 MG SYRINGE IVP PRN (22:00)
[2017-06-16] MEDS ORDERED: NITROGLYCERIN 0.4 MG SUBLINGUAL TABLET SL PRN (22:00)
[2017-06-16] MEDS ORDERED: ASPIRIN 81 MG CHEWABLE TABLET PO ONE (22:05)
[2017-06-17] MEDS: NITROGLYCERIN 2% OINTMENT 1gm PACKET TP SCH ×4 (00:07→08:43)
[2017-06-17] MEDS: GUAIFENESIN/D-METHORPHAN 600mg/30mg TABLET PO SCH ×3 (01:06→21:46)
[2017-06-17] MEDS: FUROSEMIDE 40 MG/4 ML INJECTION IVP SCH ×4 (01:08→21:45)
[2017-06-17] MEDS: AMIODARONE 900 MG in NS 500ml 500 ML IV SCH ×2 (02:55→04:30)
[2017-06-17] MEDS ORDERED: ONDANSETRON 4 MG/2 ML INJECTION IVP PRN ×2 (03:08→08:29)
[2017-06-17] MEDS: BUDESONIDE INH.SOLN 0.5mg/2ml NEB AEROSOL SCH ×2 (06:38→19:47)
[2017-06-17] MEDS: ALBUTEROL/IPRATROPIUM 2.5mg-0.5mg/3ml NEB AEROSOL SCH ×4 (06:38→19:47)
[2017-06-17] MEDS ORDERED: LIDOCAINE 1% (10mg/ml) 30ml SDV INJ ONE (06:59)
[2017-06-17] MEDS ORDERED: HEPARIN 1,000 UNITS/500 ML PREMIX (*CVL ONLY*) IV ONE (06:59)
[2017-06-17] MEDS ORDERED: IOHEXOL 350mg/ml 200ml BOTTLE ONE (06:59)
[2017-06-17] MEDS ORDERED: SALINE FLUSH 10ml SYRINGE ONE ×2 (07:08→07:53)
[2017-06-17] MEDS ORDERED: FentaNYL 100 MCG/2 ML INJECTION ONE (07:08)
[2017-06-17] MEDS ORDERED: MIDAZOLAM 2mg/2ml INJECTION ONE (07:08)
[2017-06-17] MEDS ORDERED: DiltiaZEM Drip 125 MG in NS 125 ML IV SCH (07:15)
[2017-06-17] MEDS ORDERED: HEPARIN 1,000unit/ml INJECTION 10ml ONE (07:35)
[2017-06-17] MEDS ORDERED: NITROGLYCERIN 50MG INJECTION IV ONE (07:35)
[2017-06-17] MEDS ORDERED: Verapamil 5 MG/2 ML VIAL ONE (07:35)
[2017-06-17] MEDS ORDERED: MAG-AL + SIM ORAL LIQUID 30ml PO PRN (08:29)
[2017-06-17] MEDS ORDERED: Bisacodyl EC TAB 5 MG TABLET PO PRN (08:29)
[2017-06-17] MEDS ORDERED: BISACODYL 10 MG SUPPOSITORY RECTALLY PRN (08:29)
[2017-06-17] MEDS ORDERED: ATROPINE 1 MG/ML INJECTION IVP PRN (08:29)
[2017-06-17] MEDS ORDERED: LORazepam 0.5 MG TABLET PO PRN (08:29)
[2017-06-17] MEDS ORDERED: NITROGLYCERIN 0.4 MG SUBLINGUAL TABLET SL PRN (08:29)
[2017-06-17] MEDS ORDERED: PROMETHAZINE 25 MG INJECTION IVP PRN (08:29)
[2017-06-17] MEDS ORDERED: METOCLOPRAMIDE 10mg/2ml INJECTION IVP PRN (08:29)
[2017-06-17] MEDS ORDERED: ACETAMINOPHEN 325 MG TABLET PO PRN (08:29)
--- NOTE | 2017-06-17 08:54 | Cardiac Catheterization Report ---
DATE OF PROCEDURE June 17, 2017 The patient is a pleasant 71-year-old lady with history of coronary artery disease who was admitted with an episode of congestive heart failure, chest pressure and tightness suggestive of angina and was referred for further evaluation by cardiac catheterization and possible intervention. Informed consent was obtained after explaining the procedure and the potential risks to the patient who agreed to proceed with the procedure. PROCEDURE 1. Left heart catheterization. 2. Coronary angiography. 3. Left ventriculography. TECHNIQUE She was prepped and draped in the usual sterile techniques. Conscious sedation was performed using Versed and fentanyl. 1% lidocaine was used for local anesthesia. Using modified Seldinger technique, arterial access was obtained into the right radial artery with placement of a 6-Ser[place] arterial sheath. LEFT VENTRICULOGRAPHY Left ventriculography in single-plane BOUDREAUX shallow projection showed severe global hypokinesia with ejection fraction of about 25% with no mitral regurgitation or gradient across the aortic valve. LVEDP was elevated at 30. CORONARY ANGIOGRAPHY Left main was free of significant lesions. Left anterior descending artery had diffuse disease but no stenosis greater than 30%. Diagonals were somewhat small with first diagonal showing about 70-80% ostial stenosis. Second and third diagonals had minor irregularities. Left circumflex artery was occluded proximally. Long segment of stent was noted in left circumflex with a bifurcating stent at the origin of the marginal and all were occluded. Right coronary artery had diffuse disease with disease of up to about 50% distally. Collaterals were noted going to left circumflex territory. The patient tolerated the procedure well with no complications. IMPRESSION 1. Coronary artery disease as described above. 2. LV dysfunction with ejection fraction of about 25%. 3. Elevated LV end-diastolic pressure. PLAN Will continue medical management. The patient's left circumflex lesion appears to be a long lesion with in-stent restenosis as well as a bifurcating stent in the obtuse marginal, and I think opening this vessel will have a high rate of recurrence and therefore we decided to continue medical management. MICHELLE
[2017-06-17] MEDS ORDERED: CLOPIDOGREL 75 MG TABLET PO SCH (09:00)
[2017-06-17] MEDS: PredniSONE 20 MG TABLET PO SCH (09:24)
[2017-06-17] MEDS: SACUBITRIL/VALSARTAN 24/26mg TABLET PO SCH ×2 (09:24→21:46)
[2017-06-17] MEDS: SPIRONOLACTONE 25 MG TABLET PO SCH (09:24)
[2017-06-17] MEDS: AMIODARONE 200 MG TABLET PO SCH ×2 (09:28→21:46)
[2017-06-17] MEDS: SALINE FLUSH 10ml SYRINGE IVF PRN ×3 (09:28→21:45)
[2017-06-17] MEDS: ASPIRIN *EC* 81 MG TABLET PO SCH (09:42)
--- NOTE | 2017-06-17 13:50 | Cardiology Progress Note ---
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 Overnight she developed atrial fibrillation and was transferred to CCU where she later converted on Amiodarone. <Ange Holden - 06/17/17 14:09> Exam Vital signs: Temperature 97.5 F 06/18/17 11:26 Pulse Rate 74 06/18/17 11:26 Respiratory Rate 18 06/18/17 11:26 Blood Pressure 115/65 06/18/17 11:26 Pulse Oximetry 91 06/18/17 11:26 <Roman Novoa - 06/18/17 13:27> Temperature 97.4 F 06/17/17 11:57 Pulse Rate 74 06/17/17 13:07 Respiratory Rate 32 H 06/17/17 11:30 Blood Pressure 114/53 06/17/17 11:30 Pulse Oximetry 92 06/17/17 11:30 <Ange Holden 06/17/17 14:09> - Constitutional no acute distress, well nourished, cooperative <Ange Holden 06/17/17 14: 09> - Routine HEENT Exam Head: Present: normocephalic <Ange Holden 06/17/17 14:09> ENT: Present: mucous membranes moist <Ange Holden 06/17/17 14:09> - Routine Neck Exam Absent: JVD, carotid bruit <Ange Holden 06/17/17 14:09> - Routine Chest/Breast/Axilla Exam Chest wall: Absent: tenderness <Ange Holden 06/17/17 14:09> - Routine Respiratory Exam Present: rales (bibasilar). Absent: CTA bilaterally, wheezes <Ange Holden 06/17/17 14:09> - Routine Cardiovascular Exam Present: RRR, no murmur. Absent: JVD <Ange Holden 06/17/17 14:09> - Routine Abdominal Exam Present: soft, normoactive bowel sounds <Ange Holden 06/17/17 14:09> - Routine Extremities Exam Present: edema <Ange Holden - 06/17/17 14:09> - Routine Skin Exam Present: intact, dry, warm <Ange Holden - 06/17/17 14:09> - Routine Neurological Exam Present: alert, oriented X3 <Ange Holden - 06/17/17 14:09> - Routine Psychiatric Exam Present: normal affect, normal thought process <Ange Holden - 06/17/17 14: 09> - Additional findings Additional findings: Date of Exam: 06/16/17 Type of Exam(s): CA heart cath LT DATE OF PROCEDURE June 17, 2017 The patient is a pleasant 71-year-old lady with history of coronary artery disease who was admitted with an episode of congestive heart failure, chest pressure and tightness suggestive of angina and was referred for further evaluation by cardiac catheterization and possible intervention. Informed consent was obtained after explaining the procedure and the potential risks to the patient who agreed to proceed with the procedure. PROCEDURE 1. Left heart catheterization. 2. Coronary angiography. 3. Left ventriculography. TECHNIQUE She was prepped and draped in the usual sterile techniques. Conscious sedation was performed using Versed and fentanyl. 1% lidocaine was used for local anesthesia. Using modified Seldinger technique, arterial access was obtained into the right radial artery with placement of a 6-English arterial sheath. LEFT VENTRICULOGRAPHY Left ventriculography in single-plane BOU[place]AUX shallow projection showed severe global hypokinesia with ejection fraction of about 25% with no mitral regurgitation or gradient across the aortic valve. LVEDP was elevated at 30. CORONARY ANGIOGRAPHY Left main was free of significant lesions. Left anterior descending artery had diffuse disease but no stenosis greater than 30%. Diagonals were somewhat small with first diagonal showing about 70-80% ostial stenosis. Second and third diagonals had minor irregularities. Left circumflex artery was occluded proximally. Long segment of stent was noted in left circumflex with a bifurcating stent at the origin of the marginal and all were occluded. Right coronary artery had diffuse disease with disease of up to about 50% distally. Collaterals were noted going to left circumflex territory. The patient tolerated the procedure well with no complications. IMPRESSION 1. Coronary artery disease as described above. 2. LV dysfunction with ejection fraction of about 25%. 3. Elevated LV end-diastolic pressure. PLAN Will continue medical management. The patient's left circumflex lesion appears to be a long lesion with in-stent restenosis as well as a bifurcating stent in the obtuse marginal, and I think opening this vessel will have a high rate of recurrence and therefore we decided to continue medical management. <Adina,Ange Lynn - 06/17/17 14:09> - Urinary Catheter Management Urethral Cath placed during this visit: no <Donavon Novoasein - 06/18/17 13:27> yes <AdinaAnge - 06/18/17 11:50> Insertion date: 06/16/17 <AdinaAnge - 06/17/17 14:09> Insertion time: 22:48 <AdinaAnge mosqueda - 06/17/17 14:09> Assessment and Plan - Assessment and Plan (1) Dyspnea Current visit: Yes Status: Acute (2) Atherosclerotic heart disease of [place] coronary artery without angina pectoris Current visit: Yes Status: Acute (3) Essential (primary) hypertension Current visit: Yes Status: Acute (4) Mixed hyperlipidemia Current visit: Yes Status: Acute (5) Unstable angina Current visit: Yes Status: Acute (6) Ischemic cardiomyopathy Problem details: History of [place] Current visit: Yes Status: Acute (7) Systolic heart failure Current visit: Yes Status: Acute (8) Atrial fibrillation Current visit: Yes Status: Acute (9) NSTEMI (non-ST elevated myocardial infarction) Current visit: Yes Status: Acute <Vickie Novoain - 06/18/17 13:27> (1) Ischemic cardiomyopathy Problem details: History of [place] Current visit: Yes Status: Acute EF on [facility] 25% today. Will need LifeVest. On Aspirin and Metoprolol 100mg daily, add Entresto, Spironolactone. (2) Systolic heart failure Current visit: Yes Status: Acute Increase diuresis to Lasix 40mg IV Q6H. Add Entresto and Spironolactone (3) Atrial fibrillation Current visit: Yes Status: Acute Change Plavix to Pradaxa for stroke risk associated with Afib. Change IV Amiodarone to oral, BID today please. (4) Unstable angina Current visit: Yes Status: Acute LHC today, see report (5) Dyspnea Current visit: Yes Status: Acute (6) Atherosclerotic heart disease of [place] coronary artery without angina pectoris Current visit: Yes Status: Acute Will continue medical management. The patient's left circumflex lesion appears to be a long lesion with in-stent restenosis as well as a bifurcating stent in the obtuse marginal, and I think opening this vessel will have a high rate of recurrence and therefore we decided to continue medical management. (7) Essential (primary) hypertension Current visit: Yes Status: Acute (8) Mixed hyperlipidemia Current visit: Yes Status: Acute (9) NSTEMI (non-ST elevated myocardial infarction) Current visit: Yes Status: Acute Initial troponin on admission was negative 1) 0.049, 2) 0.035, 3) 1.520, 4) 2.090, 5) 1.430, 6) 1.140. Heart cath revealed Left circumflex artery was occluded proximally. Long segment of stent was noted in left circumflex with a bifurcating stent at the origin of the marginal and all were occluded. The patient's left circumflex lesion appears to be a long lesion with in-stent restenosis as well as a bifurcating stent in the obtuse marginal, and I think opening this vessel will have a high rate of recurrence and therefore we decided to continue medical management. <Ange Holden - 06/18/17 11:49> - Attestation Attestation Narrative: 06/18/17 13:27 Recommendation After examining the patient I agree with the above assessment. I am involved in the formulation of the patient's plan of care. <Roman Novoa - 06/18/17 13:27> Hospital Course Summary Disclaimer: The visit summary below is not to be considered part of the above Progress Note. <Roman Novoa - 06/18/17 13:27> The visit summary below is not to be considered part of the above Progress Note. <Ange Holden - 06/17/17 14:09> Hospital Course: 06/16/17 10:20 Impression Acute Dyspnea Tachypnea Leukocytosis COPD ?CHF Hypertension Hyperlipidemia CAD OA Plan Admit to outpatient observation for acute dyspnea and tachypnea Will continue with Prednisone 60 mg daily starting now for pulmonary inflammation Schedule DuoNeb QID and Pulmicort BID Obtain ECHO and consult Dr Novoa patients curatorial specialist. She was scheduled to see him at the clinic today She was given a one time dose of Lasix 40 mg IV this morning in the ER. Noted to be hypertensive however she has not had usual home medications. Will review meds once reconciled. Suspect mild leukocytosis is secondary to steroid use. Will continue to monitor. SCD to bilateral lower ext for DVT prophylaxis Will discuss further orders and plan of care with attending, Dr Gentile At time of discharge medical care is to return to PCP Dr Husam Kennedy 06/16/17 Cardiology Unstable Angina:She reports chest tightness and pressure with dyspnea ongoing since Thursday Dyspnea:Reports Acute dyspnea that has only begun on Thursday this past week. CAD: Cath images reviewed from last heart cath 06/25/2016. Has CAD, needs repeat heart cath. Lovenox 1mg/kg SQ X1 this evening. Continue Plavix and Aspirin. NPO after midnight for left heart cath in AM Thank you for the consult, we will follow along with you. 06/17/17 14:05 Ischemic CM:EF on [facility] 25% today. Will need LifeVest. On Aspirin and Metoprolol 100mg daily, add Entresto, Spironolactone. Systolic HF: Increase diuresis to Lasix 40mg IV Q6H. Add Entresto and Spironolactone Atrial fibrillation: Change Plavix to Pradaxa for stroke risk associated with Afib. Change IV Amiodarone to oral, BID today please. CAD: Will continue medical management. The patient's left circumflex lesion appears to be a long lesion with in-stent restenosis as well as a bifurcating stent in the obtuse marginal, and I think opening this vessel will have a high rate of recurrence and therefore we decided to continue medical management. <Ange Holden - 06/17/17 14:09>
--- NOTE | 2017-06-17 14:54 | Progress Note ---
Subjective: F/U: Acute dyspnea secondary to acute systolic HF/ischemic cardiomyopathy Resting in bed this afternoon. Tolerated cath. Breathing feels okay-not feeling SOA at rest. No cough or sputum. Denies pain with breathing. No current nausea or ab pain. No f/c. Cath revealed significant decrease of EF. Objective Vital signs: Temperature 97.4 F 06/17/17 11:57 Pulse Rate 74 06/17/17 13:07 Respiratory Rate 32 H 06/17/17 11:30 Blood Pressure 114/53 06/17/17 11:30 Pulse Oximetry 92 06/17/17 11:30 - Constitutional Present: well nourished, well developed, morbidly obese, cooperative - Routine HEENT Exam Head: Present: normocephalic, atraumatic Eye: Present: EOMI, PERRL ENT: Present: mucous membranes moist - Routine Respiratory Exam Present: decreased breath sounds, prolonged expiratory phase, distant breath sounds, diminished air movement. Absent: respiratory distress, wheezes, crackles - Routine Cardiovascular Exam Present: RRR - Routine Abdominal Exam Present: soft, normoactive bowel sounds, non distended, non tender - Routine Extremities Exam Present: edema (+2). Absent: cyanosis, clubbing Comments: SCD in place on BLE - Routine Skin Exam Present: dry, warm - Routine Neurological Exam Present: alert, oriented X3, CN II-XII intact, moving all extremities, vision grossly intact, hearing grossly intact. Absent: motor deficit - Routine Psychiatric Exam Present: normal affect, normal thought process, cooperative. Absent: anxious, agitated Results - Labs CBC & Chem 7: 06/17/17 04:55 06/17/17 04:55 Assessment and Plan (1) Dyspnea Current visit: Yes Status: Acute (2) Tachypnea Current visit: Yes Status: Acute DVT Prophylaxis: SCD's, Pradaxa Resuscitation Status: Full Code Assessment and Plan: Impression Acute Dyspnea secondary to acute systolic heart failure Acute systolic heart failure Ischemic cardiomyopathy - EF 25% NSTEMI Unstable angina CAD - cath 06/07/17 extensive disease, medical management recommended Tachypnea Leukocytosis Elevated liver enzymes - suspect component of passive liver congestion secondary to heart failure COPD Hypertension Hyperlipidemia OA Morbid obesity with BMI 46.8 Plan Will taper off predinison as cardiogenic dyspnea found. Continue with Neb treatments, acapella, and mucolytics. Lasix initiate at 40mg IV q 6 hours by cardiology to help decrease volume. With decreased EF, patient being set up for Life-Vest. Continue Pradaxa- definitely needs with suppress EF. Consult PT/OT tomorrow for cardiac rehab purposes. Discussed with CM about setting patient up for cardiac rehab post hospital discharge. Suspect with need additional home paco at discharge to monitor cardiopulmonary status. Recheck CMP in am due to diuretic use and elevated LFT. Repeat CBC secondary to leukocytosis. Case discussed with CM, Dr Novoa, and patient's son. Time spent with patient care 25 minutes. - Time spent with patient Time with patient PN: 25 minutes Hospital Course Summary Disclaimer: The visit summary below is not to be considered part of the above Progress Note. 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 She was scheduled to see him at the clinic today She was given a one time dose of Lasix 40 mg IV this morning in the ER. Noted to be hypertensive however she has not had usual home medications. Will review meds once reconciled. Suspect mild leukocytosis is secondary to steroid use. Will continue to monitor. SCD to bilateral lower ext for DVT prophylaxis Will discuss further orders and plan of care with attending, Dr Gentile At time of discharge medical care is to return to PCP Dr Husam Kennedy 06/16/17 Cardiology Unstable Angina:She reports chest tightness and pressure with dyspnea ongoing since Thursday Dyspnea:Reports Acute dyspnea that has only begun on Thursday this past week. CAD: Cath images reviewed from last heart cath 06/25/2016. Has CAD, needs repeat heart cath. Lovenox 1mg/kg SQ X1 this evening. Continue Plavix and Aspirin. NPO after midnight for left heart cath in AM Thank you for the consult, we will follow along with you. 06/17/17 Cardiology Ischemic CM:EF on LHC 25% today. Will need LifeVest. On Aspirin and Metoprolol 100mg daily, add Entresto, Spironolactone. Systolic HF: Increase diuresis to Lasix 40mg IV Q6H. Add Entresto and Spironolactone Atrial fibrillation: Change Plavix to Pradaxa for stroke risk associated with Afib. Change IV Amiodarone to oral, BID today please. CAD: Will continue medical management. The patient's left circumflex lesion appears to be a long lesion with in-stent restenosis as well as a bifurcating stent in the obtuse marginal, and I think opening this vessel will have a high rate of recurrence and therefore we decided to continue medical management. 06/17/17 Hospitalist Will taper off predinison as cardiogenic dyspnea found. Continue with Neb treatments, acapella, and mucolytics. Lasix initiate at 40mg IV q 6 hours by cardiology to help decrease volume. Entresto and Spironolactone started due to decreased EF. Continue Pradaxa-definitely needs with suppress EF. With decreased EF, patient being set up for Life-Vest. Consult PT/OT tomorrow for cardiac rehab purposes. Discussed with CM about setting patient up for cardiac rehab post hospital discharge. Suspect with need additional home paco at discharge to monitor cardiopulmonary status. Recheck CMP in am due to diuretic use and elevated LFT. Repeat CBC secondary to leukocytosis.
[2017-06-18] MEDS: FUROSEMIDE 40 MG/4 ML INJECTION IVP SCH ×2 (04:24→11:38)
[2017-06-18] MEDS: ALBUTEROL/IPRATROPIUM 2.5mg-0.5mg/3ml NEB AEROSOL SCH ×4 (06:59→19:17)
[2017-06-18] MEDS: BUDESONIDE INH.SOLN 0.5mg/2ml NEB AEROSOL SCH ×2 (07:00→19:16)
[2017-06-18] MEDS ORDERED: PredniSONE 20 MG TABLET PO SCH (08:00)
--- NOTE | 2017-06-18 10:52 | Progress Note ---
Subjective: F/U: Acute dyspnea secondary to acute systolic HF/ischemic cardiomyopathy Feeling like she is making gains. Breathing improving. Notes less SOA. Able to walk farther and not get as winded. Not dizzy or unsteady when up. Not having cough or congestion. No pain with breathing. No chest pressure or pain. Eating well. No nausea or ab pain. Not liking the torres cath. No f/c. Objective Vital signs: Temperature 97.6 F 06/18/17 07:54 Pulse Rate 63 06/18/17 08:17 Respiratory Rate 20 06/18/17 07:54 Blood Pressure 139/80 06/18/17 07:54 Pulse Oximetry 95 06/18/17 07:54 Height/Weight/BMI: Weight 112 kg - Constitutional Present: no acute distress, well nourished, well developed, morbidly obese - Routine HEENT Exam Head: Present: normocephalic, atraumatic Eye: Present: EOMI, PERRL ENT: Present: mucous membranes moist - Routine Respiratory Exam Present: decreased breath sounds, diminished air movement. Absent: respiratory distress, rhonchi, stridor, wheezes, crackles - Routine Cardiovascular Exam Present: RRR - Routine Abdominal Exam Present: soft, non distended, non tender - Routine Extremities Exam Present: cyanosis, clubbing, edema (+1 ) - Routine Musculoskeletal Exam Musculoskeletal: Present: no clubbing or cyanosis, normal strength - Routine Skin Exam Present: dry, warm - Routine Neurological Exam Present: alert, oriented X3, CN II-XII intact, motor deficit, moving all extremities, vision grossly intact, hearing grossly intact. Absent: altered mental status - Routine Psychiatric Exam Present: normal affect, normal thought process, cooperative, good insight, good judgment Results - Labs CBC & Chem 7: 06/18/17 04:22 06/18/17 04:22 Assessment and Plan (1) Dyspnea Current visit: Yes Status: Acute (2) Tachypnea Current visit: Yes Status: Acute DVT Prophylaxis: Pradaxa Resuscitation Status: Full Code Assessment and Plan: Impression Acute systolic heart failure Acute Dyspnea secondary to acute systolic heart failure Ischemic cardiomyopathy - EF 25% NSTEMI Unstable angina CAD - cath 06/07/17 extensive disease, medical management recommended Tachypnea Leukocytosis Elevated liver enzymes - suspect component of passive liver congestion secondary to heart failure COPD Hypertension Hyperlipidemia OA Morbid obesity with BMI 46.8 Plan Decrease Prednisone to 20mg daily starting tomorrow - will continue to gradually taper. Continue neb treatments and acapella due to COPD. Respiratory status improving - patient maintaining saturations well on room air. Less dyspnea with activities. PT/OT initiated for cardiopulmonary rehab. Outpatient rehab set up. CM also setting up HH. Insurance approval for Life-Vest pending. Recheck CMP in am due to medication use. Repeat CBC in am due to leukocytosis. Check Mg in am as potassium low normal. Case discussed with CM. Time spent with patient care 25 minutes. Hospital Course Summary Disclaimer: The visit summary below is not to be considered part of the above Progress Note. Hospital Course: 06/16/17 Impression Acute Dyspnea - ?COPD exacerbation vs cardiogenic Tachypnea Leukocytosis COPD ?CHF Hypertension Hyperlipidemia CAD OA Plan Admit to outpatient observation for acute dyspnea and tachypnea Will continue with Prednisone 60 mg daily starting now for pulmonary inflammation Schedule DuoNeb QID and Pulmicort BID Obtain ECHO and consult Dr Novoa patients restaurant crew member. She was scheduled to see him at the clinic today She was given a one time dose of Lasix 40 mg IV this morning in the ER. Noted to be hypertensive however she has not had usual home medications. Will review meds once reconciled. Suspect mild leukocytosis is secondary to steroid use. Will continue to monitor. SCD to bilateral lower ext for DVT prophylaxis Will discuss further orders and plan of care with attending, Dr Gentile At time of discharge medical care is to return to PCP Dr Husam Kennedy 06/16/17 Cardiology Unstable Angina:She reports chest tightness and pressure with dyspnea ongoing since Thursday Dyspnea:Reports Acute dyspnea that has only begun on Thursday this past week. CAD: Cath images reviewed from last heart cath 06/25/2016. Has CAD, needs repeat heart cath. Lovenox 1mg/kg SQ X1 this evening. Continue Plavix and Aspirin. NPO after midnight for left heart cath in AM Thank you for the consult, we will follow along with you. 06/17/17 Cardiology Ischemic CM:EF on [facility] 25% today. Will need LifeVest. On Aspirin and Metoprolol 100mg daily, add Entresto, Spironolactone. Systolic HF: Increase diuresis to Lasix 40mg IV Q6H. Add Entresto and Spironolactone Atrial fibrillation: Change Plavix to Pradaxa for stroke risk associated with Afib. Change IV Amiodarone to oral, BID today please. CAD: Will continue medical management. The patient's left circumflex lesion appears to be a long lesion with in-stent restenosis as well as a bifurcating stent in the obtuse marginal, and I think opening this vessel will have a high rate of recurrence and therefore we decided to continue medical management. 06/17/17 Hospitalist Will taper off predinison as cardiogenic dyspnea found. Continue with Neb treatments, acapella, and mucolytics. Lasix initiate at 40mg IV q 6 hours by cardiology to help decrease volume. Entresto and Spironolactone started due to decreased EF. Continue Pradaxa-definitely needs with suppress EF. With decreased EF, patient being set up for Life-Vest. Consult PT/OT tomorrow for cardiac rehab purposes. Discussed with CM about setting patient up for cardiac rehab post hospital discharge. Suspect with need additional home paco at discharge to monitor cardiopulmonary status. Recheck CMP in am due to diuretic use and elevated LFT. Repeat CBC secondary to leukocytosis. 06/18/17 Hospitalist Decrease Prednisone to 20mg daily starting tomorrow - will continue to gradually taper. Continue neb treatments and acapella due to COPD. Respiratory status improving - patient maintaining saturations well on room air. Less dyspnea with activities. PT/OT initiated for cardiopulmonary rehab. Outpatient rehab set up. CM also setting up . Insurance approval for Life-Vest pending. Recheck CMP in am due to medication use. Repeat CBC in am due to leukocytosis. Check Mg in am as potassium low normal.
[2017-06-18] MEDS: SACUBITRIL/VALSARTAN 24/26mg TABLET PO SCH ×2 (11:50→21:50)
[2017-06-18] MEDS: FUROSEMIDE 40 MG TABLET PO SCH ×2 (11:50→13:14)
[2017-06-18] MEDS: GUAIFENESIN/D-METHORPHAN 600mg/30mg TABLET PO SCH ×2 (11:50→21:50)
[2017-06-18] MEDS: AMIODARONE 200 MG TABLET PO SCH ×2 (11:50→21:50)
[2017-06-18] MEDS: ASPIRIN *EC* 81 MG TABLET PO SCH (11:51)
[2017-06-18] MEDS: SPIRONOLACTONE 25 MG TABLET PO SCH (11:51)
--- NOTE | 2017-06-18 12:11 | Cardiology Progress Note ---
Subjective Principal diagnosis: Unstable Angina, atrial fibrillation <Ange Holden 12:12> Interval history: Glenys is seen in her room on Surgical. She is sitting up in the recliner and denies c/o chest pain, dyspnea, palpitations or dizziness. <Ange Holden 06/19/17 10:37> Exam Vital signs: Temperature 97.6 F 06/19/17 11:00 Pulse Rate 72 06/19/17 11:00 Respiratory Rate 18 06/19/17 15:04 Blood Pressure 113/61 06/19/17 11:00 Pulse Oximetry 96 06/19/17 15:04 <Roman Novoa - 06/23/17 13:58> Temperature 97.5 F 06/18/17 11:26 Pulse Rate 74 06/18/17 11:26 Respiratory Rate 18 06/18/17 11:26 Blood Pressure 115/65 06/18/17 11:26 Pulse Oximetry 91 06/18/17 11:26 <Ange Holden 06/18/17 12:12> - Constitutional no acute distress, obese, cooperative <Ange Holden 06/18/17 12:12> - Routine HEENT Exam Head: Present: normocephalic <Ange Holden 06/18/17 12:12> ENT: Present: mucous membranes moist <Ange Holden 06/18/17 12:12> - Routine Neck Exam Absent: JVD, carotid bruit <Ange Holden 06/18/17 12:12> - Routine Chest/Breast/Axilla Exam Chest wall: Absent: tenderness <Ange Holden 06/18/17 12:12> - Routine Respiratory Exam Present: CTA bilaterally, diminished air movement <Ange Holden 06/18/17 12:12> - Routine Cardiovascular Exam Present: RRR, no murmur. Absent: JVD <Ange Holden 06/18/17 12:12> - Routine Abdominal Exam Present: soft, normoactive bowel sounds <Ange Holden 06/18/17 12:12> - Routine Extremities Exam Present: edema <Ange Holden 06/18/17 12:12> - Routine Skin Exam Present: intact, dry, warm <Ange Holedn M - 06/18/17 12:12> - Routine Neurological Exam Present: alert, oriented X3 <Ange Holden - 06/18/17 12:12> - Routine Psychiatric Exam Present: normal affect, normal thought process <Ange Holden M - 06/18/17 12: 12> - Additional findings Additional findings: Laboratory Results - last 24 hr 06/17/17 06/17/17 06/17/17 11:44 17:38 23:26 WBC RBC Hgb Hct MCV MCH MCHC RDW Std Deviation Plt Count MPV Immature Gran % (Auto) Neut % (Auto) Lymph % (Auto) [place] % (Auto) Eos % (Auto) Baso % (Auto) Neut # (Auto) Lymph # (Auto) [place] # (Auto) Eos # (Auto) Baso # (Auto) Abs Immat Gran (auto) Neutrophils % (Manual) Band Neutrophils % Lymphocytes % (Manual) Monocytes % (Manual) Neutrophils # (Manual) Band Neutrophils # Lymphocytes # (Manual) Monocytes # (Manual) RBC Morph Comment Turbidity Sodium Potassium Chloride Carbon Dioxide Anion Gap BUN Creatinine GFR Calculation BUN/Creatinine Ratio Glucose Calculated Osmolality Calcium Icterus Index Troponin I 2.090 H 1.430 H 1.140 H Specimen Hemolysis < 15 < 15 < 15 06/18/17 06/18/17 04:22 04:22 WBC 15.3 H RBC 4.87 Hgb 13.1 D Hct 40.3 D MCV 82.8 MCH 26.9 MCHC 32.5 RDW Std Deviation 43.8 Plt Count 361 MPV 10.7 Immature Gran % (Auto) Not performed Neut % (Auto) Not performed Lymph % (Auto) Not performed [place] % (Auto) Not performed Eos % (Auto) Not performed Baso % (Auto) Not performed Neut # (Auto) Not performed Lymph # (Auto) Not performed [place] # (Auto) Not performed Eos # (Auto) Not performed Baso # (Auto) Not performed Abs Immat Gran (auto) Not performed Neutrophils % (Manual) 61.0 Band Neutrophils % 1.0 Lymphocytes % (Manual) 34.0 Monocytes % (Manual) 4.0 Neutrophils # (Manual) 9.3 H Band Neutrophils # 0.2 Lymphocytes # (Manual) 5.2 H Monocytes # (Manual) 0.6 RBC Morph Comment Normal Turbidity < 20 Sodium 141 Potassium 3.6 Chloride 99 Carbon Dioxide 31 H Anion Gap 11 BUN 28.0 H Creatinine 0.9 GFR Calculation 61 BUN/Creatinine Ratio 31 H Glucose 119 H Calculated Osmolality 278 Calcium 8.4 Icterus Index < 2 Troponin I Specimen Hemolysis < 15 Acetaminophen (Tylenol) 325 - 650 mg PO Q5H PRN PRN Reason: Pain Hydrocodone Bitart/Acetaminophen ([place] 7.5/325) 1 tab PO Q4H PRN PRN Reason: Pain Al Hydroxide/Mg Hydroxide (Maalox Plus) 30 ml PO Q3H PRN PRN Reason: Indigestion Albuterol/Ipratropium (Duoneb) 3 ml AEROSOL QID [facility] Last Admin: 06/18/17 10:51 Dose: 3 ml Amiodarone HCl ([place]) 200 mg PO BID [facility] Last Admin: 06/18/17 11:50 Dose: 200 mg Aspirin (Ecotrin) 81 mg PO DAILY [facility] Last Admin: 06/18/17 11:51 Dose: 81 mg Atropine Sulfate (Atropine) 0.5 mg IVP Q5M PRN PRN Reason: Bradycardia Bisacodyl (Dulcolax) 5 - 10 mg PO DAILY PRN PRN Reason: Constipation Bisacodyl (Dulcolax) 10 mg RECTALLY DAILY PRN PRN Reason: Constipation Budesonide (Pulmicort Inhalation) 0.5 mg AEROSOL RTBID [facility] Last Admin: 06/18/17 07:00 Dose: 0.5 mg Dabigatran (Pradaxa) 150 mg PO BID [facility] Last Admin: 06/18/17 11:50 Dose: 150 mg Furosemide (Lasix) 40 mg PO Q6H [facility] Last Admin: 06/18/17 11:50 Dose: 40 mg Guaifenesin/Dextromethorphan (Mucinex Dm) 1 tab PO BID [facility] Last Admin: 06/18/17 11:50 Dose: 1 tab Lorazepam (Ativan Inj) 0.5 - 1 mg IVP Q4H PRN PRN Reason: Anxiety Lorazepam (Ativan) 0.5 - 1 mg PO Q4H PRN PRN Reason: Anxiety Magnesium Hydroxide (Mom) 30 ml PO DAILY PRN PRN Reason: Constipation Metoclopramide HCl (Reglan) 5 - 10 mg IVP Q6H PRN PRN Reason: Nausea &/or vomiting Metoprolol Succinate (Toprol Xl) 100 mg PO PM [facility] Last Admin: 06/17/17 19:19 Dose: 100 mg Morphine Sulfate (Morphine Sulfate Inj) 2 - 4 mg IVP Q4H PRN PRN Reason: Pain Last Admin: 06/16/17 22:34 Dose: 2 mg Nitroglycerin (Nitrostat) 0.4 mg SL Q5MIN3 PRN PRN Reason: Chest pain Nitroglycerin (Nitrostat) 0.4 mg SL Q5M PRN PRN Reason: Angina Omeprazole (Prilosec) 20 mg PO ACB [facility] Ondansetron HCl (Zofran) 4 mg IVP Q6H PRN PRN Reason: Nausea &/or vomiting Last Admin: 06/17/17 03:10 Dose: 4 mg Ondansetron HCl (Zofran) 4 mg IVP Q6H PRN PRN Reason: Nausea &/or vomiting Prednisone (Deltasone) 20 mg PO WB [facility] Promethazine HCl (Phenergan Inj) 12.5 - 25 mg IVP Q6HR PRN PRN Reason: Nausea &/or vomiting Sacubitril/Valsartan (Entresto 24/26mg) 1 tab PO BID [facility] Last Admin: 06/18/17 11:50 Dose: 1 tab Sodium Chloride (Iv Flush) 10 - 80 ml IVF PRN PRN PRN Reason: Flushing Last Admin: 06/17/17 21:45 Dose: 10 ml Spironolactone (Aldactone) 25 mg PO DAILY [facility] Last Admin: 06/18/17 11:51 Dose: 25 mg <Ange Holden - 06/18/17 12:12> - Urinary Catheter Management Urethral Cath placed during this visit: no <Roman Novoa - 06/23/17 13:58> yes, but has since been removed by the nurse <Ange Holden - 06/19/17 10:37> Insertion date: 06/16/17 <Ange Holden - 06/18/17 12:12> Insertion time: 22:48 <Ange Holden - 06/18/17 12:12> Removal date: 06/18/17 <Ange Holden - 06/18/17 12:12> Removal time: 11:20 <Ange Holden - 06/18/17 12:12> Assessment and Plan - Assessment and Plan (1) Dyspnea Status: Acute (2) Atherosclerotic heart disease of [place] coronary artery without angina pectoris Status: Acute (3) Essential (primary) hypertension Status: Acute (4) Mixed hyperlipidemia Status: Acute (5) Unstable angina Status: Acute (6) Ischemic cardiomyopathy Problem details: History of CA Status: Acute (7) Systolic heart failure Status: Acute (8) Atrial fibrillation Status: Acute (9) NSTEMI (non-ST elevated myocardial infarction) Status: Acute <Roman Novoa - 06/23/17 13:58> (1) Ischemic cardiomyopathy Problem details: History of CA Status: Acute Has LifeVest for cardiomyopathy/ systolic HF. Given Entresto smaples and discount card as well as Pradaxa samples and discount card (2) Systolic heart failure Status: Acute Change Diuretic to Lasix 40mg po BID. Has LifeVest for cardiomyopathy/ systolic HF. Given Entresto smaples and discount card as well as Pradaxa samples and discount card (3) Atrial fibrillation Status: Acute (4) Unstable angina Status: Acute (5) Dyspnea Status: Acute (6) Atherosclerotic heart disease of [place] coronary artery without angina pectoris Status: Acute (7) Essential (primary) hypertension Status: Acute (8) Mixed hyperlipidemia Status: Acute (9) NSTEMI (non-ST elevated myocardial infarction) Status: Acute <Ange Holden Shane - 06/19/17 10:36> - Attestation Attestation Narrative: 06/23/17 13:58 Recommendation After examining the patient I agree with the above assessment. I am involved in the formulation of the patient's plan of care. <Roman Novoa - 06/23/17 13:58> Hospital Course Summary Disclaimer: The visit summary below is not to be considered part of the above Progress Note. <Roman Novoa - 06/23/17 13:58> The visit summary below is not to be considered part of the above Progress Note. 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 She was scheduled to see him at the clinic today She was given a one time dose of Lasix 40 mg IV this morning in the ER. Noted to be hypertensive however she has not had usual home medications. Will review meds once reconciled. Suspect mild leukocytosis is secondary to steroid use. Will continue to monitor. SCD to bilateral lower ext for DVT prophylaxis Will discuss further orders and plan of care with attending, Dr Gentile At time of discharge medical care is to return to PCP Dr Husam Kennedy 06/16/17 Cardiology Unstable Angina:She reports chest tightness and pressure with dyspnea ongoing since Thursday Dyspnea:Reports Acute dyspnea that has only begun on Thursday this past week. CAD: Cath images reviewed from last heart cath 06/25/2016. Has CAD, needs repeat heart cath. Lovenox 1mg/kg SQ X1 this evening. Continue Plavix and Aspirin. NPO after midnight for left heart cath in AM Thank you for the consult, we will follow along with you. 06/17/17 14:05 NSTEMI:Initial troponin on admission was negative 1) 0.049, 2) 0.035, 3) 1.520, 4) 2.090, 5) 1.430, 6) 1.140. Heart cath revealed Left circumflex artery was occluded proximally. Long segment of stent was noted in left circumflex with a bifurcating stent at the origin of the marginal and all were occluded. The patient's left circumflex lesion appears to be a long lesion with in-stent restenosis as well as a bifurcating stent in the obtuse marginal, and I think opening this vessel will have a high rate of recurrence and therefore we decided to continue medical management. Ischemic CM:EF on LHC 25% today. Will need LifeVest. On Aspirin and Metoprolol 100mg daily, add Entresto, Spironolactone. Systolic HF: Increase diuresis to Lasix 40mg IV Q6H. Add Entresto and Spironolactone Atrial fibrillation: Change Plavix to Pradaxa for stroke risk associated with Afib. Change IV Amiodarone to oral, BID today please. CAD: Will continue medical management. The patient's left circumflex lesion appears to be a long lesion with in-stent restenosis as well as a bifurcating stent in the obtuse marginal, and I think opening this vessel will have a high rate of recurrence and therefore we decided to continue medical management. 06/18/17 17:21 Has LifeVest for cardiomyopathy/ systolic HF. Given Entresto smaples and discount card as well as Pradaxa samples and discount card Change Diuretic to Lasix 40mg po BID <Ange Holden - 06/19/17 10:37>
[2017-06-18] MEDS: SALINE FLUSH 10ml SYRINGE IVF PRN ×2 (13:30→21:50)
[2017-06-19] MEDS: SALINE FLUSH 10ml SYRINGE IVF PRN (06:12)
[2017-06-19] MEDS ORDERED: OMEPRAZOLE 20 MG CAPSULE PO SCH (06:30)
[2017-06-19] MEDS: ALBUTEROL/IPRATROPIUM 2.5mg-0.5mg/3ml NEB AEROSOL SCH ×3 (07:57→15:03)
[2017-06-19] MEDS: BUDESONIDE INH.SOLN 0.5mg/2ml NEB AEROSOL SCH ×2 (07:57→16:00)
[2017-06-19] MEDS ORDERED: PredniSONE 20 MG TABLET PO SCH (08:00)
[2017-06-19] MEDS: ASPIRIN *EC* 81 MG TABLET PO SCH (08:35)
[2017-06-19] MEDS: AMIODARONE 200 MG TABLET PO SCH (08:36)
[2017-06-19] MEDS: SPIRONOLACTONE 25 MG TABLET PO SCH (08:36)
[2017-06-19] MEDS: SACUBITRIL/VALSARTAN 24/26mg TABLET PO SCH (08:36)
[2017-06-19] MEDS: GUAIFENESIN/D-METHORPHAN 600mg/30mg TABLET PO SCH (08:36)
[2017-06-19] MEDS ORDERED: FUROSEMIDE 40 MG TABLET PO SCH (09:00)
--- NOTE | 2017-06-19 09:33 | Progress Note ---
Subjective: F/U: Acute dyspnea secondary to acute systolic HF/ischemic cardiomyopathy Doing okay today. Worried than will all the medical changes found during this hospitalization (systolic hear failure, need for life vest) she won't do well at home. Notes she's much more tired today, more struggle to be up and ambulatory. Breathing doing fair, winds with activities but breathing not as heavy as prior to presentation. Eating well. Stools slow-no ab pain or discomfort. No F/C. Objective Vital signs: Temperature 98.6 F 06/19/17 07:51 Pulse Rate 69 06/19/17 08:03 Respiratory Rate 18 06/19/17 07:57 Blood Pressure 125/61 06/19/17 07:51 Pulse Oximetry 97 06/19/17 07:57 Height/Weight/BMI: Weight 113.5 kg - Constitutional Present: well nourished, well developed, morbidly obese, cooperative. Absent: combative, agitated - Routine HEENT Exam Head: Present: normocephalic, atraumatic Eye: Present: EOMI, PERRL ENT: Present: mucous membranes moist - Routine Respiratory Exam Present: decreased breath sounds, distant breath sounds, diminished air movement. Absent: respiratory distress, rhonchi, wheezes, crackles - Routine Cardiovascular Exam Present: RRR, no murmur - Routine Abdominal Exam Present: soft, normoactive bowel sounds, non distended, non tender - Routine Extremities Exam Present: edema (+1 BLE ). Absent: cyanosis, clubbing - Routine Musculoskeletal Exam Musculoskeletal: Present: no clubbing or cyanosis, no joint swelling - Routine Skin Exam Present: dry, warm - Routine Neurological Exam Present: alert, oriented X3, CN II-XII intact, moving all extremities, vision grossly intact, hearing grossly intact. Absent: motor deficit, altered mental status - Routine Psychiatric Exam Present: normal affect, normal thought process, cooperative, good insight, good judgment. Absent: anxious Results - Labs CBC & Chem 7: 06/19/17 04:01 06/19/17 04:01 Assessment and Plan (1) Dyspnea Current visit: Yes Status: Acute (2) Tachypnea Current visit: Yes Status: Acute DVT Prophylaxis: Pradaxa Resuscitation Status: Full Code Assessment and Plan: Impression Acute systolic heart failure Acute Dyspnea secondary to acute systolic heart failure Ischemic cardiomyopathy - EF 25% NSTEMI Unstable angina - stabilized CAD - cath 06/07/17 extensive disease, medical management recommended Atrial fibrillation Tachypnea Leukocytosis Elevated liver enzymes - suspect component of passive liver congestion secondary to heart failure COPD Hypertension Hyperlipidemia OA Morbid obesity with BMI 46.8 Plan CM looking into potential skilled stay to help patient improve functional status and become better educated and accustomed to medications. Medication changes made during hospitalization: Pradaxa added for anticoagulation - Plavix stopped. Lasix started at 40mg BID - HCTZ stopped. Entresto started BID due to systolic heart failure - losartan stopped. Amiodarone started for atrial fibrillation. Life Vest obtained secondary to significantly decreased EF. Will need life vest for 3 months - then will need evaluation to see if EF improved or if pt needs permanent defibrillator placement. Will add daily Mirlax to help bowel function - hold with loose stool. Start potassium 20mEq daily as potassium decreased. Need to monitor potassium and creatinine due to medication use. Evaluate for O2 needs - nursing started O2 overnight. Will continue Prednisone 20mg for 5 days and then could stop. Possible discharge today - ideally would like Skilled care. CM working on arrangements and checking with insurance. Post discharge will need CMP and Mg in 1 week secondary to medications. Will need F/U with Dr Kennedy in [address] Novoa in 2-3 weeks. Outpatient cardiac rehab once patient is home. Case discussed with CM. Time spent with patient care 25 minutes. Hospital Course Summary Disclaimer: The visit summary below is not to be considered part of the above Progress Note. 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 She was scheduled to see him at the clinic today She was given a one time dose of Lasix 40 mg IV this morning in the ER. Noted to be hypertensive however she has not had usual home medications. Will review meds once reconciled. Suspect mild leukocytosis is secondary to steroid use. Will continue to monitor. SCD to bilateral lower ext for DVT prophylaxis At time of discharge medical care is to return to PCP Dr Husam Kennedy 06/16/17 Cardiology Unstable Angina:She reports chest tightness and pressure with dyspnea ongoing since Thursday Dyspnea:Reports Acute dyspnea that has only begun on Thursday this past week. CAD: Cath images reviewed from last heart cath 06/25/2016. Has CAD, needs repeat heart cath. Lovenox 1mg/kg SQ X1 this evening. Continue Plavix and Aspirin. NPO after midnight for left heart cath in AM 06/17/17 Cardiology NSTEMI:Initial troponin on admission was negative 1) 0.049, 2) 0.035, 3) 1.520, 4) 2.090, 5) 1.430, 6) 1.140. Heart cath revealed Left circumflex artery was occluded proximally. Long segment of stent was noted in left circumflex with a bifurcating stent at the origin of the marginal and all were occluded. The patient's left circumflex lesion appears to be a long lesion with in-stent restenosis as well as a bifurcating stent in the obtuse marginal, and I think opening this vessel will have a high rate of recurrence and therefore we decided to continue medical management. Ischemic CM:EF on [facility] 25% today. Will need LifeVest. On Aspirin and Metoprolol 100mg daily, add Entresto, Spironolactone. Systolic HF: Increase diuresis to Lasix 40mg IV Q6H. Add Entresto and Spironolactone Atrial fibrillation: Change Plavix to Pradaxa for stroke risk associated with Afib. Change IV Amiodarone to oral, BID today please. CAD: Will continue medical management. The patient's left circumflex lesion appears to be a long lesion with in-stent restenosis as well as a bifurcating stent in the obtuse marginal, and I think opening this vessel will have a high rate of recurrence and therefore we decided to continue medical management. 06/17/17 Hospitalist Will taper off predinison as cardiogenic dyspnea found. Continue with Neb treatments, acapella, and mucolytics. Lasix initiated at 40mg IV q 6 hours by cardiology to help decrease volume. Entresto and Spironolactone started due to decreased EF. Continue Pradaxa-definitely needs with suppress EF. With decreased EF, patient being set up for Life-Vest. Consult PT/OT tomorrow for cardiac rehab purposes. Discussed with CM about setting patient up for cardiac rehab post hospital discharge. Suspect with need additional home paco at discharge to monitor cardiopulmonary status. Recheck CMP in am due to diuretic use and elevated LFT. Repeat CBC secondary to leukocytosis. 06/18/17 Hospitalist Decrease Prednisone to 20mg daily starting tomorrow - will continue to gradually taper. Continue neb treatments and acapella due to COPD. Respiratory status improving - patient maintaining saturations well on room air. Less dyspnea with activities. PT/OT initiated for cardiopulmonary rehab. Outpatient rehab set up. CM also setting up . Insurance approval for Life-Vest pending. Recheck CMP in am due to medication use. Repeat CBC in am due to leukocytosis. Check Mg in am as potassium low normal. 06/18/17 Cardiology Has LifeVest for cardiomyopathy/ systolic HF. Given Entresto samples and discount card as well as Pradaxa samples and discount card Change Diuretic to Lasix 40mg po BID 06/19/17 Hospitalist CM looking into potential skilled stay to help patient improve functional status and become better educated and accustomed to medications. Medication changes made during hospitalization: Pradaxa added for anticoagulation - Plavix stopped. Lasix started at 40mg BID - HCTZ stopped. Entresto started BID due to systolic heart failure - losartan stopped. Amiodarone started for atrial fibrillation. Life Vest obtained secondary to significantly decreased EF. Will need life vest for 3 months - then will need evaluation to see if EF improved or if pt needs permanent defibrillator placement. Will add daily Mirlax to help bowel function - hold with loose stool. Start potassium 20mEq daily as potassium decreased. Need to monitor potassium and creatinine due to medication use. Evaluate for O2 needs - nursing started O2 overnight. Will continue Prednisone 20mg for 5 days and then could stop. Possible discharge today - ideally would like Skilled care. CM working on arrangements and checking with insurance. Post discharge will need CMP and Mg in 1 week secondary to medications. Will need F/U with Dr Kennedy in [address] Novoa in 2-3 weeks.
[2017-06-19] MEDS ORDERED: POLYETHYL GLYCOL 3350 17gm PACKET PO SCH (10:00)
[2017-06-19 11:19] VITALS: BP 113/61; PULSE 72; TEMP 97.6
[2017-06-19 15:08] VITALS: RESP 18; O2SAT 96
--- NOTE | 2017-06-19 15:11 | Discharge Summary ---
Discharge Information Date of admission: 06/17/17 13:50 Anticipated date of discharge: 06/19/17 Attending Physician: Grey Gentile MD Primary care physician: Tahir Kennedy MD Consults: Dr Novoa - cardiology PT/OT - Discharge Diagnosis (1) Dyspnea Status: Acute (2) Tachypnea Status: Acute Discharge Diagnosis: Discharge diagnosis Acute systolic heart failure Associated conditions and complications Acute Dyspnea secondary to acute systolic heart failure Ischemic cardiomyopathy - EF 25% NSTEMI Unstable angina CAD - cath 06/07/17 extensive disease, medical management recommended Tachypnea Leukocytosis Elevated liver enzymes - suspect component of passive liver congestion secondary to heart failure COPD Hypertension Hyperlipidemia OA Morbid obesity with BMI 46.8 - Procedures Procedures: Date of Exam: 06/16/17 Type of Exam: CA heart cath LT PROCEDURE 1. Left heart catheterization. 2. Coronary angiography. 3. Left ventriculography. TECHNIQUE She was prepped and draped in the usual sterile techniques. Conscious sedation was performed using Versed and fentanyl. 1% lidocaine was used for local anesthesia. Using modified Seldinger technique, arterial access was obtained into the right radial artery with placement of a 6-[place] arterial sheath. LEFT VENTRICULOGRAPHY Left ventriculography in single-plane BOUDREAUX shallow projection showed severe global hypokinesia with ejection fraction of about 25% with no mitral regurgitation or gradient across the aortic valve. LVEDP was elevated at 30. CORONARY ANGIOGRAPHY Left main was free of significant lesions. Left anterior descending artery had diffuse disease but no stenosis greater than 30%. Diagonals were somewhat small with first diagonal showing about 70-80% ostial stenosis. Second and third diagonals had minor irregularities. Left circumflex artery was occluded proximally. Long segment of stent was noted in left circumflex with a bifurcating stent at the origin of the marginal and all were occluded. Right coronary artery had diffuse disease with disease of up to about 50% distally. Collaterals were noted going to left circumflex territory. The patient tolerated the procedure well with no complications. IMPRESSION 1. Coronary artery disease as described above. 2. LV dysfunction with ejection fraction of about 25%. 3. Elevated LV end-diastolic pressure. PLAN Will continue medical management. The patient's left circumflex lesion appears to be a long lesion with in-stent restenosis as well as a bifurcating stent in the obtuse marginal, and I think opening this vessel will have a high rate of recurrence and therefore we decided to continue medical management. Date of Exam: 06/16/17 Type of Exam: US echo doppler complete DESCRIPTION This is a two-dimensional echo with spectral Doppler, color-flow and M-mode. It was obtained in a patient with dyspnea. Left atrium is dilated. Left ventricle end-diastolic dimension is normal. Left ventricle wall thickness is increased. LV systolic function is normal with ejection fraction of 61%. Right atrium is dilated. Right ventricle is normal. Aortic root dimension is normal. Mitral annulus is calcified. Mitral valve leaflets are normal with moderate mitral regurgitation. Aortic valve shows fibrocalcific changes with mild restriction on opening motion. Transaortic velocities are increased with peak velocity of 2.68 meters per second with peak gradient of 29 and mean gradient of 11. The aortic valve area was calculated at 1.28 cm2. There is mild aortic insufficiency present. Tricuspid valve shows mild tricuspid regurgitation with mild pulmonary hypertension with estimated pulmonary artery systolic pressure of 39. Pulmonary valve shows no pulmonary insufficiency. There is no pericardial effusion. IMPRESSION 1. Normal LV systolic function with ejection fraction of 61%. 2. Biatrial dilation. 3. Left ventricular hypertrophy. 4. Mitral annulus calcification with moderate mitral regurgitation. 5. Aqay-vk-izopluhn aortic stenosis with a valve area of 1.28 cm2 with mild aortic insufficiency. 6. Mild tricuspid regurgitation with mild pulmonary hypertension with estimated pulmonary artery systolic pressure of 39. - Laboratory Labs: Admit Lab 06/16/17 07:17 WBC 12.8 H Hgb 12.2 Hct 38.8 MCV 84.7 Plt Count 290 Neut % (Auto) 78.8 H Lymph % (Auto) 13.8 L Admit Lab 06/16/17 06/16/17 07:17 07:17 Sodium 144 Potassium 3.7 Chloride 108 H Carbon Dioxide 26 Anion Gap 10 BUN 22.0 H D Creatinine 0.8 GFR Calculation 70 Glucose 118 H Calculated Osmolality 281 H Calcium 9.1 Icterus Index < 2 AST 73 H D ALT 74 H Troponin I 0.049 D B-Natriuretic Peptide 2010 H Laboratory Tests 06/16/17 06/16/17 06/17/17 07:17 21:18 04:55 Troponin I 0.049 D 0.035 1.520 H D 06/17/17 06/17/17 06/17/17 11:44 17:38 23:26 Troponin I 2.090 H 1.430 H 1.140 H 06/19/17 04:01 06/19/17 04:01 - Radiology Radiology: Date of Exam: 06/16/17 PROCEDURE: CHEST 2-VIEWS UPRIGHT (PA & LAT) FINDINGS: Increasing interstitial markings compared to the prior study. Motion artifact obscures the lung [place] on the lateral view. There is no pleural effusion or pneumothorax. The heart size, mediastinal contours and pulmonary vascularity are stable. IMPRESSION: Worsening interstitial markings could represent atypical/viral pneumonia or mild edema. History of Present Illness HPI: Patient is a 71 year old female who has been in the ER three times over the past 4 days for evaluation of acute dyspnea. On Thursday she had labs and CT chest completed. All were needed for acute process. Patient felt much better and was discharged home on prednisone burst and inhalers. She reported that she felt better over the next 24 hours, however, last evening, awoke at about 1 a.m. to have acute dyspnea again. She drove herself to the emergency room where she was reexamined. Initially on arrival, she was reported to be hypoxia with room saturations of 89%. She was given a breathing treatment in which hypoxia improved in room air saturations were 92-96%. Her prednisone was increased to 60 milligrams. She declined further workup and was discharged home. She again today. Becomes increasingly short of breath with exertion thus presenting to the emergency room again for further acute evaluation. Laboratory studies today revealed white count 12.8, hemoglobin 12.2, hematocrit 38.8, neutrophils 70%. REM is 144, potassium 3.8, BUNs 22, creatinine 0.8, glucose 118. Troponin is 0.041, proBNP 2010. Urinalysis is negative. Chest x- ray does reveal worsening interstitial markings. Over the EKG reveals sinus rhythm with left bundle branch block. Patient is noted to be Breathing 30 times a minute. No episodes of hypoxia during emergency room valuation. Garcia continues to become significantly symptomatic with minimal exertion. Given these symptoms. The hospitalist services were contacted and accepted patient for outpatient admission for further observation and workup. For complete details of the H&P refer to that document. Objective Vital signs: Temperature 97.6 F 06/19/17 11:00 Pulse Rate 72 06/19/17 11:00 Respiratory Rate 16 06/19/17 11:21 Blood Pressure 113/61 06/19/17 11:00 Pulse Oximetry 91 06/19/17 11:42 Height/Weight/BMI: Weight 113.5 kg Hospital Course This is a general summary of the patient's hospital course. For more details refer to the complete medical record. 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 She was scheduled to see him at the clinic today She was given a one time dose of Lasix 40 mg IV this morning in the ER. Noted to be hypertensive however she has not had usual home medications. Will review meds once reconciled. Suspect mild leukocytosis is secondary to steroid use. Will continue to monitor. SCD to bilateral lower ext for DVT prophylaxis At time of discharge medical care is to return to PCP Dr Husam Kennedy 06/16/17 Cardiology Unstable Angina:She reports chest tightness and pressure with dyspnea ongoing since Thursday Dyspnea:Reports Acute dyspnea that has only begun on Thursday this past week. CAD: Cath images reviewed from last heart cath 06/25/2016. Has CAD, needs repeat heart cath. Lovenox 1mg/kg SQ X1 this evening. Continue Plavix and Aspirin. NPO after midnight for left heart cath in AM 06/17/17 Cardiology NSTEMI:Initial troponin on admission was negative 1) 0.049, 2) 0.035, 3) 1.520, 4) 2.090, 5) 1.430, 6) 1.140. Heart cath revealed Left circumflex artery was occluded proximally. Long segment of stent was noted in left circumflex with a bifurcating stent at the origin of the marginal and all were occluded. The patient's left circumflex lesion appears to be a long lesion with in-stent restenosis as well as a bifurcating stent in the obtuse marginal, and I think opening this vessel will have a high rate of recurrence and therefore we decided to continue medical management. Ischemic CM:EF on LHC 25% today. Will need LifeVest. On Aspirin and Metoprolol 100mg daily, add Entresto, Spironolactone. Systolic HF: Increase diuresis to Lasix 40mg IV Q6H. Add Entresto and Spironolactone Atrial fibrillation: Change Plavix to Pradaxa for stroke risk associated with Afib. Change IV Amiodarone to oral, BID today please. CAD: Will continue medical management. The patient's left circumflex lesion appears to be a long lesion with in-stent restenosis as well as a bifurcating stent in the obtuse marginal, and I think opening this vessel will have a high rate of recurrence and therefore we decided to continue medical management. 06/17/17 Hospitalist Will taper off predinison as cardiogenic dyspnea found. Continue with Neb treatments, acapella, and mucolytics. Lasix initiated at 40mg IV q 6 hours by cardiology to help decrease volume. Entresto and Spironolactone started due to decreased EF. Continue Pradaxa-definitely needs with suppress EF. With decreased EF, patient being set up for Life-Vest. Consult PT/OT tomorrow for cardiac rehab purposes. Discussed with CM about setting patient up for cardiac rehab post hospital discharge. Suspect with need additional home paco at discharge to monitor cardiopulmonary status. Recheck CMP in am due to diuretic use and elevated LFT. Repeat CBC secondary to leukocytosis. 06/18/17 Hospitalist Decrease Prednisone to 20mg daily starting tomorrow - will continue to gradually taper. Continue neb treatments and acapella due to COPD. Respiratory status improving - patient maintaining saturations well on room air. Less dyspnea with activities. PT/OT initiated for cardiopulmonary rehab. Outpatient rehab set up. CM also setting up . Insurance approval for Life-Vest pending. Recheck CMP in am due to medication use. Repeat CBC in am due to leukocytosis. Check Mg in am as potassium low normal. 06/18/17 Cardiology Has LifeVest for cardiomyopathy/ systolic HF. Given Entresto samples and discount card as well as Pradaxa samples and discount card Change Diuretic to Lasix 40mg po BID 06/19/17 Hospitalist CM looking into potential skilled stay to help patient improve functional status and become better educated and accustomed to medications. Medication changes made during hospitalization: Pradaxa added for anticoagulation - Plavix stopped. Continue ASA. Lasix started at 40mg BID - HCTZ stopped. Spironolactone 25mg daily started due to systolic heart failure. Entresto started BID due to systolic heart failure - losartan stopped. Amiodarone 200mg BID started for atrial fibrillation. Life Vest obtained secondary to significantly decreased EF. Will need life vest for 3 months - then will need evaluation to see if EF improved or if pt needs permanent defibrillator placement. Will add daily Mirlax to help bowel function - hold with loose stool. Start potassium 10mEq daily as potassium decreased. Need to monitor potassium and creatinine due to medication use. Evaluate for O2 needs - nursing started O2 overnight. Will continue Prednisone 20mg for 5 days and then could stop. Possible discharge today - ideally would like Skilled care. CM working on arrangements and checking with insurance. Post discharge will need CMP and Mg in 1 week secondary to medications. Will need F/U with Dr Kennedy in [address] Novoa in 2-3 weeks. See orders for details. DVT Prophylaxis: Pradaxa Discharge Plan - Med Rec/Dispo Referrals/Follow Up: Tahir Kennedy MD [Family Provider] - 1 Week (Hospital f/u for Acute on chronic systolic heart failure. ) Roman Novoa MD [Physician] - 3 Weeks (Hospital f/u in 3-4 weeks. ) Prescriptions: New Amiodarone [Pacerone] 200 mg PO BID tablet Dabigatran [Pradaxa] 150 mg PO BID capsule Furosemide [Lasix] 40 mg PO 0900,1700 tablet LORazepam [Ativan] 0.5 - 1 mg PO Q4H PRN #20 tab PRN Reason: Anxiety Potassium Chloride [K-Dur] 10 meq PO WB tablet PredniSONE [Deltasone] 20 mg PO WB #5 tab SACUBITRIL/VALSARTAN 24/26mg [ENTRESTO 24/26mg] 1 tab PO BID tablet Spironolactone [Aldactone] 25 mg PO DAILY tablet Guaifenesin/Dm [Mucinex Dm] 1 tab PO BID tablet Polyethylene Glycol 3350 [Miralax] 17 gm PO DAILY #1 bottle Continue Esomeprazole Magnesium [Nexium] 40 mg PO DAILY #0 Alirocumab [Praluent Pen] 75 mg SQ Q2WKS Hydrocodone/APAP 7.5/325 [[place] 7.5/325] 1 tab PO Q4H PRN #30 tab PRN Reason: Pain Nitroglycerin [Nitrostat] 0.4 mg SL PRN #0 Metoprolol Succinate [Toprol Xl] 100 mg PO PM #0 Aspirin [Aspir 81] 81 mg PO DAILY #30 tab Mometasone Furoate 1 spray EA NOSTRIL DAILY PRN PRN Reason: Prn Orders Ipatropium/Albuterol [Combivent Respimat Inhaler] 2 puff INH QID PRN PRN Reason: Prn Orders Discontinued Clopidogrel Bisulfate [Plavix] 75 mg PO DAILY #0 Ramsey-3/Dha/Epa/Fish Oil [Fish Oil 1,000 mg Softgel] 1 cap PO DAILY predniSONE [Prednisone] 40 mg PO AC #10 tab hydroCHLOROthiazide [Hydrochlorothiazide] 12.5 mg PO WESA #0 Losartan [Cozaar] 50 mg PO PM Discharge Instructions/Outpatient Orders: Final Provider Discharge Instructions Location: Determined By Patient - Disposition 03 To SNU Not [facility] (SNF) - Attestation Attestation Narrative: 06/19/17 15:24 I have independently interviewed and examined patient prior to discharge. See my progress note from today for details. Patient medically stable for discharge to [facility].
--- NOTE | 2017-06-19 15:35 | Extended Care Facility Orders ---
Admission Orders Admit to:: [facility] Allergies/Adverse Reactions: Allergies dexlansoprazole [From Dexilant] Allergy (Intermediate, Verified 06/16/17 11:45) doxycycline Allergy (Intermediate, Verified 06/16/17 11:45) Rash tramadol Allergy (Intermediate, Verified 06/16/17 11:45) MOUTH RASH ezetimibe Allergy (Mild, Verified 06/16/17 11:45) TONGUE SORE Penicillins Allergy (Mild, Verified 06/16/17 11:45) TONGUE GETS SORE amoxicillin Allergy (Unknown, Verified 06/16/17 11:45) PER DR ANUM ORDERS ciprofloxacin Allergy (Unknown, Verified 06/16/17 11:45) COLD estradiol Allergy (Unknown, Verified 06/16/17 11:45) PER DR ANUM ORDERS gemfibrozil Allergy (Unknown, Verified 06/16/17 11:45) lisinopril Allergy (Unknown, Verified 06/16/17 11:45) COUGH terconazole Allergy (Unknown, Verified 06/16/17 11:45) "BREAK OUT" clindamycin Adverse Reaction (Severe, Verified 06/16/17 11:45) hurts stomach azithromycin Adverse Reaction (Intermediate, Verified 06/16/17 11:45) Diarrhea clotrimazole Adverse Reaction (Intermediate, Verified 06/16/17 11:45) pantoprazole Adverse Reaction (Intermediate, Verified 06/16/17 11:45) Headache fenofibrate Adverse Reaction (Mild, Verified 06/16/17 11:45) "SICK AT STOMACH" metronidazole Adverse Reaction (Mild, Verified 06/16/17 11:45) "DIZZY, LOW BLOOD PRESSURE" niacin Adverse Reaction (Mild, Verified 06/16/17 11:45) "TIRED, FEEL BAD" propoxyphene Adverse Reaction (Mild, Verified 06/16/17 11:45) "HURTS STOMACH simvastatin Adverse Reaction (Mild, Verified 06/16/17 11:45) "TIRED, FACE BREAK OUT" pitavastatin [From Livalo] Adverse Reaction (Unknown, Verified 06/16/17 11:45) Cephalexin Monohydrate Allergy (Unknown, Uncoded 06/16/17 11:45) PER ANUM ORDERS rosuvastatin calcium Allergy (Unknown, Uncoded 06/16/17 11:45) PER ANUM ORDERS trichloroacetic acid Allergy (Unknown, Uncoded 06/16/17 11:45) PER DR ROWAN ORDERS Unclassified Drug Adverse Reaction (Unknown, Uncoded 06/16/17 11:45) "ZETREA" Unknown Drug Possibly Zetia mispronounced, but if not, Zetrea is an unknown medication. Whatever it is it causes pain in the back. Amando Chang, [facility] Admitting Diagnosis: Acute systolic heart failure, COPD Admitting Physician: Grey Gentile MD Attending Physician: Dr Kennedy Code Status: Full Code Anticiapted Length of Stay: 30 days or less Rehab Potential: good Rehab Prognosis: good Diet: No added salt. May have up to 2 quarts fluid a day. May use Facility Protocol or Standing Orders: Yes May have flu vaccine: Yes Evaluations/Treatment: PT (Cardiopulmonary debility), OT (Cardiopulmonary debility) [facility] Certification: I certify that SNF services are required to be given on an Inpatient basis because of the patients need for care home care on a continuing basis for the condition(s) for which he/she received inpatient hospital services prior to his/her transfer to the SNF. SNF inpatient care is necessary for the following reasons Indication for [facility]: Med Admininistration, Teach Medication Management, Teach CHF, Teach COPD Management, Other (Skilled PT/OT to maximize functional status. ) - Additional Information In Event of Arrest: Start CPR,call 911,send patient to the ER Resident is Aware of Diagnosis: Yes Referrals: Roman Novoa MD [Physician] - 3 Weeks (Hospital f/u in 3-4 weeks. ) Tahir Kennedy MD [Family Provider] - 1 Week (Hospital f/u for Acute on chronic systolic heart failure. ) Additional Orders: F/U with Dr Kennedy in 1 week for medical evaluation. F/U with Dr Novoa in 2-3 weeks for cardiac evaluation. Patient to wear life vest at all times. Use Acapella 4 times a day. Daily weights due to CHF. Check CMP and Magnesium on 06/23/17 secondary to medication use. O2 as needed to keep saturations above 90%. Consider further cardiac rehabilitation at time of discharge from care home care.
== END 2017-06-19 15:58 | DRG 287 ==
LOC: ED 05:57 → MED 05:57 → CCU 21:45 → SRG 06-17 18:20
PROVIDERS: ADMIT Hospitalist; ATTEND Hospitalist

== ENCOUNTER 2018-02-18 23:05 | Inpatient (IN) ==
[2018-02-18] MEDS ORDERED: NITROGLYCERIN 2% OINTMENT 1gm PACKET TP ONE (23:20)
--- NOTE | 2018-02-18 23:27 | Emergency Department Report ---
Asthma HPI - General Stated Complaint: soa, heavy chest Time Seen by Provider: 02/18/18 23:08 Source: patient Mode of arrival: ambulatory Limitations: no limitations - History of Present Illness HPI Narrative: Patient has been having mild cough for the past several months, and has a long- standing history of dyspnea with chest heaviness. Patient was admitted back in May of last year for the same symptoms, and was found to have exacerbation of congestive heart failure. Was initially thought that the patient had COPD, but after undergoing pulmonary function tests her COPD diagnosis has been retracted, and patient has diagnoses of congestive heart failure with diastolic failure and coronary artery disease. Patient presents tonight for dyspnea that has been worsening over the past 18- 36 hours. Patient stated that yesterday she began having heaviness in the chest , this is remained constant throughout the past 24+ hours, and then tonight, 2 hours ago the patient began having worsening dyspnea. Patient notes that she had her diuretic decreased by Dr. Kennedy her primary care physician in [place] 2 weeks ago. Patient states that she is only had a 3 pound weight gain which she and Dr. Kennedy were satisfied with. - Related Data Home Medications Medication Instructions Recorded Confirmed Esomeprazole Magnesium [Nexium] 40 mg PO DAILY #0 06/25/09 02/19/18 Metoprolol Succinate [Toprol Xl] 100 mg PO PM #0 06/25/09 02/18/18 Nitroglycerin [Nitrostat] 0.4 mg SL PRN #0 06/25/09 02/18/18 Aspirin [Aspir 81] 81 mg PO DAILY #30 tab 06/25/16 02/18/18 Mometasone Furoate 1 spray EA NOSTRIL DAILY PRN 06/16/17 02/19/18 Dabigatran [Pradaxa] 1 cap PO DAILY 02/19/18 02/19/18 Furosemide [Lasix 40 mg Tab] 40 mg PO DAILY 02/19/18 02/18/18 Previous Rx's Medication Instructions Recorded Amiodarone [Pacerone] 200 mg PO BID tab 06/19/17 Guaifenesin/Dm [Mucinex Dm] 1 tab PO BID tab 06/19/17 Hydrocodone/APAP 7.5/325 [[place] 1 tab PO Q4H PRN #30 tab 06/19/17 7.5/325] Potassium Chloride [K-DUR 10 mEq 10 meq PO WB tab 06/19/17 Tablet] SACUBITRIL/VALSARTAN 24/26mg 1 tab PO BID tab 06/19/17 [ENTRESTO 24/26mg] Spironolactone [Aldactone 25 mg] 25 mg PO DAILY tab 06/19/17 Allergies Allergy/AdvReac Type Severity Reaction Status Date / Time doxycycline Allergy Intermediate Rash Verified 02/18/18 23:23 tramadol Allergy Intermediate MOUTH RASH Verified 02/18/18 23:23 ezetimibe Allergy Mild TONGUE SORE Verified 02/18/18 23:23 Penicillins Allergy Mild TONGUE Verified 02/18/18 23:23 GETS SORE amoxicillin Allergy Unknown Verified 02/18/18 23:23 cephalexin Allergy Unknown Unverified 02/18/18 23:23 ciprofloxacin Allergy Unknown COLD Verified 02/18/18 23:23 dexlansoprazole Allergy Unknown Unverified 02/18/18 23:23 estradiol Allergy Unknown Verified 02/18/18 23:23 gemfibrozil Allergy Unknown Verified 02/18/18 23:23 lisinopril Allergy Unknown COUGH Verified 02/18/18 23:23 pitavastatin Allergy Unknown Unverified 02/18/18 23:23 rosuvastatin Allergy Unknown Unverified 02/18/18 23:23 terconazole Allergy Unknown "BREAK OUT" Verified 02/18/18 23:23 clindamycin AdvReac Severe hurts Verified 02/18/18 23:23 stomach azithromycin AdvReac Intermediate Diarrhea Verified 02/18/18 23:23 clotrimazole AdvReac Intermediate Verified 02/18/18 23:23 pantoprazole AdvReac Intermediate Headache Verified 02/18/18 23:23 fenofibrate AdvReac Mild "SICK AT Verified 02/18/18 23:23 STOMACH" metronidazole AdvReac Mild "DIZZY, Verified 02/18/18 23:23 LOW BLOOD PRESSURE" niacin AdvReac Mild "TIRED, Verified 02/18/18 23:23 FEEL BAD" propoxyphene AdvReac Mild "HURTS Verified 02/18/18 23:23 STOMACH simvastatin AdvReac Mild "TIRED, Verified 02/18/18 23:23 FACE BREAK OUT" Cephalexin Monohydrate Allergy Unknown Uncoded 02/18/18 23:23 rosuvastatin calcium Allergy Unknown Uncoded 02/18/18 23:23 trichloroacetic acid Allergy Unknown Uncoded 06/16/17 11:45 Unclassified Drug AdvReac Unknown "ZETREA" Uncoded 06/16/17 11:45 Unknown Drug Review of Systems All systems: reviewed and negative except as stated PFSH Patient Stated Medical History Hypertension Yes Myocardial Infarction Yes: X3 Chronic Obstructive Pulmonary Yes Disease (COPD) Gastroesophageal Reflux Yes Disease Post Menopausal Yes Medical History Updates: Allergic rhinitis Surgical History: Appendectomy. Tubal ligation. Cardiac catheterization - Social History Smoking status: Former smoker Substance use type: does not use Alcohol intake frequency: does not drink Housing: apartment Household members: none Current occupational status: retired Current residence: Apartment/Private Home Physical Exam - Limitations Limitations: no limitations - General General appearance: alert - Normal Exams: Head:: Normocephalic without trauma Eyes:: Pupils are PERRLA w/ EOMI, No scleral icterus, irritation, or foreign bodies noted ENMT:: No facial trauma, nasal exudates, pharyngeal erythema, or exudates are noted Neck:: Full range of motion, without adenopathy, JVD, bruits or thyromegaly Abdomen:: Bowel sounds positive, soft, non-tender, non-distended, no hepatosplenomegaly, masses or bruits noted Lymphatic:: No lymphadenopathy, or lymphedema noted Musculoskeletal:: No tenderness, or deformity noted, good range of motion, all extremities Integumentary:: No rashes, hives, or bruising noted, hair and nails, without abnormality Neurological:: Patient is alert, and oriented, cranial nerves, motor/sensory/ cerebellar, exams w/o gross deficits, to observation Psychiatric:: Patient exhibits, appropriate attention, emotion and affect - Chest Chest inspection: Present: normal inspection, symmetric chest wall rise. Absent : tenderness - Respiratory Respiratory exam: Absent: normal lung sounds bilaterally (course crackles in the bases bilaterally), respiratory distress, wheezes, stridor, accessory muscle use, prolonged expiratory phase Dyspnea - MDM Narrative Medical decision making narrative: EKG shows sinus rhythm without ischemia, ectopy, or infarction. Patient does have a left bundle-branch block which appears chronic Patient is given aspirin, nitroglycerin, an inch of nitro paste is placed - CXR - moderate diffuse infiltrative pattern consistent with pulmonary edema, positive effusions, cardiac megaly, worsened from prior films Troponin - normal CBC - n CMP - n - Lab Data Result diagrams: 02/18/18 23:24 02/18/18 23:24 Disposition Clinical Impression: Acute exacerbation of congestive heart failure Qualifiers: Heart failure type: diastolic Qualified Code(s): I50.33 - Acute on chronic diastolic (congestive) heart failure Dis[place]: 02 [place] [facility] [place] Condition: Stable Prescriptions: No Action Esomeprazole Magnesium [Nexium] 40 mg PO DAILY #0 Amiodarone [Pacerone] 200 mg PO BID tab Hydrocodone/APAP 7.5/325 [[place] 7.5/325] 1 tab PO Q4H PRN #30 tab PRN Reason: Pain Potassium Chloride [K-DUR 10 mEq Tablet] 10 meq PO WB tab SACUBITRIL/VALSARTAN 24/26mg [ENTRESTO 24/26mg] 1 tab PO BID tab Spironolactone [Aldactone 25 mg] 25 mg PO DAILY tab Nitroglycerin [Nitrostat] 0.4 mg SL PRN #0 Metoprolol Succinate [Toprol Xl] 100 mg PO PM #0 Aspirin [Aspir 81] 81 mg PO DAILY #30 tab Mometasone Furoate 1 spray EA NOSTRIL DAILY PRN PRN Reason: Prn Orders Guaifenesin/Dm [Mucinex Dm] 1 tab PO BID tab Furosemide [Lasix 40 mg Tab] 40 mg PO DAILY Dabigatran [Pradaxa] 1 cap PO DAILY Referrals: Tahir Kennedy MD [Family Provider] - - Seen By: physician
[2018-02-18] MEDS: SALINE FLUSH 10ml SYRINGE IVF PRN (23:32)
[2018-02-18] MEDS: NITROGLYCERIN 0.4 MG SUBLINGUAL TABLET SL PRN ×2 (23:49→23:54)
[2018-02-19] MEDS ORDERED: ACETAMINOPHEN 325 MG TABLET PO PRN (00:54)
[2018-02-19] MEDS ORDERED: HYDROCODONE/APAP 5mg/325mg TABLET PO PRN (00:54)
[2018-02-19] MEDS ORDERED: NITROGLYCERIN 0.4 MG SUBLINGUAL TABLET SL SCH (00:54)
[2018-02-19] MEDS ORDERED: MORPHINE SULFATE 4mg INJECTION IVP PRN (00:54)
[2018-02-19] MEDS ORDERED: FUROSEMIDE 40 MG/4 ML INJECTION IVP SCH (00:54)
[2018-02-19] MEDS ORDERED: ONDANSETRON 4 MG/2 ML INJECTION IVP PRN (00:54)
[2018-02-19 01:07] VITALS: BMI 45.1
[2018-02-19] MEDS: SALINE FLUSH 10ml SYRINGE IVF PRN (01:19)
--- NOTE | 2018-02-19 03:20 | History & Physical Report ---
History of Present Illness Date: 02/19/18 Chief complaint: short of breath HPI: This is a 72 y/o female who has a history of CHF. This pateint is managed by her PCP in [facility]. The patient apparently is on spironolactone and lasix. Most recently about 2 weeks ago the patient had one of her diuretics stopped due to increased urinary incontinence. Over the past 3 days the patient has had increased dyspnea with exertion. She sleeps on her side and this has not changed. no PND. The pateint describes onset of "chest heaviness" that began yesterday and was not affected by movement or breathing. The patient does have a history of CAD with stents in the past. In the ED the pateint's exam is c/w mild heart failure. She has a chronic LBBB so no further interpretation could be had. Her initial troponin was negative. The pateint will be admitted for rule out and gentle diuresis. Monitor on tele. Review of Systems All systems PM: 10-point ROS was reviewed, no additional remarkable complaints except Past Medical History Medical History Updates: Allergic rhinitis, CAD with previous stents, HTN, CHF Surgical History: Appendectomy. Tubal ligation. Cardiac catheterization Family History Updates: unkown at this time Family History: As Above - Social History Smoking status: Former smoker Substance use type: does not use Alcohol intake frequency: does not drink Household members: none Current occupational status: retired Current residence: Apartment/Private Home Medications Home Medications Medication Instructions Recorded Confirmed Type Esomeprazole Magnesium [Nexium] 40 mg PO DAILY #0 06/25/09 02/19/18 History Metoprolol Succinate [Toprol Xl] 100 mg PO PM #0 06/25/09 02/18/18 History Nitroglycerin [Nitrostat] 0.4 mg SL PRN #0 06/25/09 02/18/18 History Aspirin [Aspir 81] 81 mg PO DAILY #30 tab 06/25/16 02/18/18 History Mometasone Furoate 1 spray EA NOSTRIL DAILY PRN 06/16/17 02/19/18 History Amiodarone [Pacerone] 200 mg PO BID tab 06/19/17 02/18/18 Rx Guaifenesin/Dm [Mucinex Dm] 1 tab PO BID tab 06/19/17 02/19/18 Rx Hydrocodone/APAP 7.5/325 [[place] 1 tab PO Q4H PRN #30 tab 06/19/17 02/19/18 Rx 7.5/325] Potassium Chloride [K-DUR 10 mEq 10 meq PO WB tab 06/19/17 02/19/18 Rx Tablet] SACUBITRIL/VALSARTAN 24/26mg 1 tab PO BID tab 06/19/17 02/18/18 Rx [ENTRESTO 24/26mg] Spironolactone [Aldactone 25 mg] 25 mg PO DAILY tab 06/19/17 02/18/18 Rx Dabigatran [Pradaxa] 150 mg PO BID 02/19/18 02/19/18 History Furosemide [Lasix 40 mg Tab] 40 mg PO DAILY 02/19/18 02/18/18 History Allergies Allergy/AdvReac Type Severity Reaction Status Date / Time doxycycline Allergy Intermediate Rash Verified 02/18/18 23:23 tramadol Allergy Intermediate MOUTH RASH Verified 02/18/18 23:23 ezetimibe Allergy Mild TONGUE SORE Verified 02/18/18 23:23 Penicillins Allergy Mild TONGUE Verified 02/18/18 23:23 GETS SORE amoxicillin Allergy Unknown Verified 02/18/18 23:23 cephalexin Allergy Unknown Sores in Verified 02/19/18 10:07 mouth ciprofloxacin Allergy Unknown COLD Verified 02/18/18 23:23 dexlansoprazole Allergy Unknown Face Verified 02/19/18 10:07 "breaks out" estradiol Allergy Unknown Verified 02/18/18 23:23 gemfibrozil Allergy Unknown Verified 02/18/18 23:23 lisinopril Allergy Unknown COUGH Verified 02/18/18 23:23 pitavastatin Allergy Unknown Face Verified 02/19/18 07:53 "breaks out", fatigue rosuvastatin Allergy Unknown Face Verified 02/19/18 07:53 "breaks out", fatigue terconazole Allergy Unknown "BREAK OUT" Verified 02/18/18 23:23 clindamycin AdvReac Severe hurts Verified 02/18/18 23:23 stomach azithromycin AdvReac Intermediate Diarrhea Verified 02/18/18 23:23 clotrimazole AdvReac Intermediate Verified 02/18/18 23:23 pantoprazole AdvReac Intermediate Headache Verified 02/18/18 23:23 fenofibrate AdvReac Mild "SICK AT Verified 02/18/18 23:23 STOMACH" metronidazole AdvReac Mild "DIZZY, Verified 02/18/18 23:23 LOW BLOOD PRESSURE" niacin AdvReac Mild "TIRED, Verified 02/18/18 23:23 FEEL BAD" propoxyphene AdvReac Mild "HURTS Verified 02/18/18 23:23 STOMACH simvastatin AdvReac Mild "TIRED, Verified 02/18/18 23:23 FACE BREAK OUT" Cephalexin Monohydrate Allergy Unknown Uncoded 02/18/18 23:23 rosuvastatin calcium Allergy Unknown Uncoded 02/18/18 23:23 trichloroacetic acid Allergy Unknown Uncoded 06/16/17 11:45 Unclassified Drug AdvReac Unknown "ZETREA" Uncoded 06/16/17 11:45 Unknown Drug Exam Vital Signs: Temperature 96.5 F L 02/19/18 00:53 Pulse Rate 55 L 02/19/18 01:24 Respiratory Rate 20 02/19/18 01:24 Blood Pressure 149/70 H 02/19/18 00:53 Pulse Oximetry 96 02/19/18 01:24 Telemetry Rhythm: Sinus Rhythm Height/Weight/BMI: Height 1.57 m Weight 112.1 kg Body Mass Index 45.1 - Constitutional Present: mild distress - Routine HEENT Exam Head: Present: normocephalic, atraumatic Eye: Present: PERRL, conjunctivae pink. Absent: scleral injection ENT: Present: mucous membranes moist - Routine Neck Exam Present: supple Comments: obese - Routine Respiratory Exam Comments: diminished in the bases with scattered rhonchi - Routine Cardiovascular Exam Present: RRR, no murmur - Routine Abdominal Exam Present: soft, normoactive bowel sounds - Routine Extremities Exam Comments: patient with obese legs and tr edema - Routine Skin Exam Present: intact - Routine Neurological Exam Present: alert, oriented X3, normal tone - Routine Psychiatric Exam Present: normal affect, normal thought process Results - Labs CBC & Chem 7: 02/19/18 06:08 02/19/18 06:08 Labs: reviewed and pertinent findings discussed below pCXR with mild pulm vascular congestion EKG: LBBB Assessment and Plan (1) CHF exacerbation Current visit: Yes Status: Acute (2) Atherosclerotic heart disease of [place] coronary artery without angina pectoris Current visit: No Status: Acute (3) Essential (primary) hypertension Current visit: No Status: Acute (4) Mixed hyperlipidemia Current visit: No Status: Acute Assessment and Plan: 1. mild chf acute POA: iv diuresis and reasess in the am. patient currently on combination of HCTZ and spironolactone as best as can be determined. lasix iv every 12 hours, repeat electrolytes in the am including Mg 2. CAD chronic POA: rule out as a precaution 3. atrial fibrillation chronic POA: continue pradaxa, rate controlled. 4. chest pressure acute POA: 24 hrs of pressure with normal troponin. will complete rule out on tele. DVT Prophylaxis: SCD's, Pradaxa GI Prophylaxis: Protonix Resuscitation Status: Full Code - Time spent with patient Time with patient PN: 30 minutes - Physician Narrative Physician: Yasmine Vásquez MD Narrative: Date: 02/19/18 Time: 1325 Dr. Garner's note reviewed. Mrs. Cardenas interviewed and examined. CC: Dyspnea HPI: Mrs. Cardenas is a 72-year-old female with a history of ischemic cardiomyopathy and heart failure. The cardiac catheterization last fall she had ejection fraction of 25% however echocardiogram on 02/01 demonstrated improvement with EF 45-50% and dilated left atrium. Minimal valvular disease was described. The patient was having lightheadedness and dizziness 2 weeks ago and weight was down 3 pounds from her usual weight of 240-241 pounds; her primary care physician discontinued spironolactone 25 mg per day and decrease Lasix from 80 to 40 mg per day. Patient reports her weight improved but over the past couple of days she began having increasing dyspnea and exertional dyspnea. She describes a dry cough and occasional clear sputum. She reports her chest felt tight or heavy when she took breaths. She denied having fever or chills that did have night sweats one night earlier in the week. She presented to the emergency room late last night and was subsequently hospitalized and chest x-ray suggested pulmonary edema. Diuresis was initiated and this morning patient reports that she feels improved. PH/SH/FH: agree with that recorded above by Dr. Garner with additions of GERD, atrial fibrillation, and ischemic cardiomyopathy. The patient is also had right TKA and right SANTOSH. Family history is positive for father and paternal grandfather dying of myocardial infarctions, mother had dementia, and maternal grandfather of an acute stroke at age 60. The patient is a full code and her sons Peter and Brant share DPOA. ROS: 10 point review negative except symptoms listed in history of present illness. EXAM: General-NAD, alert, cooperative, fluent speech; 95.7, 58, 137/60, 92% room air, weight HEENT-PERRL, EOMI without nystagmus, conjunctiva clear, sclera anicteric, conjugate gaze, facial structures symmetric, oropharynx clear, neck supple and without adenopathy Lungs-respirations nonlabored, good airflow, breath sounds Cardiac-regular rhythm, S1-S2 Abd-nontender, soft, no sounds present although diminished Ext-trace edema Skin-without rash/wounds Neuro-cranial nerves 3-12 intact, motor tone/power grossly intact, sensation intact to light touch 4 extremities Psych-calm, cooperative DATA: Chest x-ray reviewed by myself demonstrating asymmetric pulmonary edema L >R; repeat chest x-ray to day significantly improved. CBC as above, unchanged today; chemistries unremarkable, troponin < 0.012 x 4. pro BNP 0 EKG reviewed by myself demonstrating left bundle branch block, sinus rhythm A/P: Acute on chronic systolic CHF Ischemic cardiomyopathy Chest pressure CAD Hypertension History atrial fibrillation Clinically improved, weight at baseline following diuresis overnight. Discussed with cardiology earlier and will resume spironolactone in conjunction with reduced dose Lasix due to history compatible with patient being over diuresed a couple weeks ago. Given known ischemic cardiomyopathy patient will benefit from resumption of spironolactone. Will need follow-up of electrolytes on combined contrast on spironolactone and Enteresto in short time. PT/OT consults requested and will monitor orthostatics. Anticipate discharge soon. Old records reviewed; discussed with case management and nursing. Hospital Course Summary Disclaimer: The visit summary below is not to be considered part of the above Progress Note.
[2018-02-19] MEDS ORDERED: OMEPRAZOLE 20 MG CAPSULE PO SCH (06:45)
--- NOTE | 2018-02-19 07:41 | XRay Report ---
INDICATION: dyspnea PROCEDURE: CHEST 2-VIEWS UPRIGHT (PA & LAT) Encounter: Initial COMPARISON: June 16, 2017 FINDINGS: Hazy airspace opacities in the left lower lobe. Interstitial prominence remains. Small left pleural effusion. No pneumothorax. Heart size and mediastinal contours are stable. Pulmonary vascularity is indistinct. Impression: Moderate pulmonary edema. Developing left lower lobe pneumonia cannot be excluded. .
[2018-02-19] MEDS ORDERED: POLYETHYL GLYCOL 3350 17gm PACKET PO SCH (09:00)
[2018-02-19] MEDS ORDERED: ASPIRIN 81 MG CHEWABLE TABLET PO SCH (09:00)
[2018-02-19] MEDS ORDERED: AMIODARONE 200 MG TABLET PO SCH (09:00)
[2018-02-19] MEDS ORDERED: NON-FORMULARY MEDICATION 1 EACH EACH (Esomeprazole Magnesium [Nexium] 40 MG) PO SCH (09:00)
[2018-02-19] MEDS ORDERED: ASPIRIN *EC* 81 MG TABLET PO SCH (09:00)
[2018-02-19] MEDS ORDERED: SACUBITRIL/VALSARTAN 24/26mg TABLET PO SCH (11:12)
--- NOTE | 2018-02-19 12:19 | XRay Report ---
INDICATION: dyspnea PROCEDURE: CHEST 2-VIEWS UPRIGHT (PA & LAT) Encounter: Initial COMPARISON: February 18, 2018 FINDINGS: Airspace disease in the left lower lobe is slightly improved with residual opacity remaining. Edema has decreased. Upper lung [place] are grossly clear. Trace left effusion. No pneumothorax. Heart size and mediastinal contours are stable. Impression: Improving left lower lobe airspace disease with decreasing edema. .
[2018-02-19] MEDS ORDERED: SPIRONOLACTONE 25 MG TABLET PO SCH (13:30)
[2018-02-19 17:05] VITALS: BP 132/61; PULSE 57; RESP 16; TEMP 96.8; O2SAT 92
--- NOTE | 2018-02-19 19:49 | Discharge Summary ---
Discharge Information Date of admission: 02/19/18 00:30 Anticipated date of discharge: 02/19/18 Attending Physician: Yasmine Vásquez MD Primary care physician: Tahir Kennedy MD - Discharge Diagnosis (1) CHF exacerbation Status: Acute Acute on chronic systolic CHF Ischemic cardiomyopathy Chest pressure CAD Hypertension History atrial fibrillation - Laboratory Labs: D-dimer 169, troponin <0.0124, proBNP 2070 02/19/18 06:08 02/19/18 06:08 - Radiology Radiology: Initial chest x-ray on 02/18 demonstrated moderate pulmonary edema with hazy opacity in the left lower lobe raising question of pneumonia; repeat x-ray on 02/19 demonstrated significant improvement in vascular markings/pulmonary edema with mild residual left lower lobe opacity. History of Present Illness HPI: This is a 72 y/o female who has a history of CHF. This pateint is managed by her PCP in [facility]. The patient apparently is on spironolactone and lasix. Most recently about 2 weeks ago the patient had one of her diuretics stopped due to increased urinary incontinence. Over the past 3 days the patient has had increased dyspnea with exertion. She sleeps on her side and this has not changed. no PND. The pateint describes onset of "chest heaviness" that began yesterday and was not affected by movement or breathing. The patient does have a history of CAD with stents in the past. In the ED the pateint's exam is c/w mild heart failure. She has a chronic LBBB so no further interpretation could be had. Her initial troponin was negative. The pateint will be admitted for rule out and gentle diuresis. Monitor on tele. Objective Vital signs: Temperature 96.8 F 02/19/18 16:00 Pulse Rate 57 L 02/19/18 16:00 Respiratory Rate 16 02/19/18 16:00 Blood Pressure 132/61 02/19/18 16:00 Pulse Oximetry 92 02/19/18 16:00 Please refer to H&P Height/Weight/BMI: Height 1.57 m Weight 109.7 kg Body Mass Index 45.1 Hospital Course This is a general summary of the patient's hospital course. For more details refer to the complete medical record. Hospital course: Mrs. Cardenas was hospitalized shortness of breath without hypoxia but radiographic changes suggesting mild-moderate pulmonary edema and questionable left lower lobe infiltrate. There were no clinical symptoms or findings to suggest pneumonia nor was she febrile or had leukocytosis. She was treated with IV diuretics night of admission and diuresed well overnight with weight dropping from 112.1 kg on admission to 109.7 on 02/19. [address] way corresponded what she considered her normal weight of approximately 240-241 pounds. She was clinically improved and by late in the afternoon on 02/19 she felt stable for discharge. She had resumed oral Lasix on her own on the morning of 02/19 and subsequently received only a single IV dose Lasix early in the morning. After review of medication changes made recently I've elected to resume spironolactone at 25 mg daily and continue oral furosemide at 40 mg daily. Patient is to continue monitoring her weight daily and contact managing physicians if her weight begins to climb above her baseline weight. Furosemide may need to be increased to 60 mg daily or she may need occasional supplemental doses of furosemide in addition to scheduled dose for weight fluctuation. She appears to have a fairly good understanding of heart failure management and need to monitor weight routinely. Additionally I asked that she discontinue potassium supplement with resumption of spironolactone and have potassium reassessed in approximately one week. Resuscitation Status: Full Code Discharge Plan - Discharge Disposition Discharge Date: 02/19/18 Disposition: Discharged Home, Self-Care *Condition: Stable Reason For Visit (Visit label in EMR): CHF - Discharge Medications *Discharge Medications: Continue Esomeprazole Magnesium [Nexium] 40 mg PO DAILY #0 Amiodarone [Pacerone] 200 mg PO BID tab Hydrocodone/APAP 7.5/325 [Sperry 7.5/325] 1 tab PO Q4H PRN #30 tab PRN Reason: Pain SACUBITRIL/VALSARTAN 24/26mg [ENTRESTO 24/26mg] 1 tab PO BID tab Spironolactone [Aldactone 25 mg] 25 mg PO DAILY tab Nitroglycerin [Nitrostat] 0.4 mg SL PRN #0 Metoprolol Succinate [Toprol Xl] 100 mg PO PM #0 Aspirin [Aspir 81] 81 mg PO DAILY #30 tab Mometasone Furoate 1 spray EA NOSTRIL DAILY PRN PRN Reason: Prn Orders Guaifenesin/Dm [Mucinex Dm] 1 tab PO BID tab Furosemide [Lasix 40 mg Tab] 40 mg PO DAILY Dabigatran [Pradaxa] 150 mg PO BID Discontinued Potassium Chloride [K-DUR 10 mEq Tablet] 10 meq PO WB tab - Discharge Packet/Instructions *Diet: low salt *Activity: as tolerate, stand up slowly-make sure you are stable before walking *Pain Management/Treatment: Tylenol or Sperry if needed *Wound Care: Not applicable Additional Instructions: Resume spironolactone at 25 mg daily and continue furosemide 40 mg once daily. Check your weight daily-weight today is 241 pounds. If your weight is climbing above 240-[address] Kennedy or Dr[address] Novoa to discuss adjusting furosemide dose. Discontinue potassium since you have resumed spironolactone and are on lower dose furosemide than in the past. You will need to have potassium level checked in approximately 1 week. *Expected Signs/Symptoms: Minor swelling at the ankles, mild shortness of breath *Notify Physician if: Weight is climbing, dizziness, falls, irregular heartbeats , chest pain *During Business Hours Contact: Dr. Kennedy's office or Dr. Novoa's office *After Business Hours Contact: Call [facility] at [phone] and ask that the on-call physician be paged *Pending Lab/Results: No Pending Lab - Referrals/Follow Up *Referrals/Follow Up: Tahir Kennedy MD [Primary Care Provider] - 1 Week - Patient Handouts Patient Handouts: [facility] [place] Congestive Heart Failure - Dismissal Complete Discharge Instructions are:: Complete Physician Narrative - Narrative Attestation Narrative: Date: 02/19/18 Time: 1940
== END 2018-02-19 17:08 | disposition home or self-care (01) | DRG 293 ==
LOC: ED 23:05 → SUATTDRO 02-19 00:30 → MED 02-19 00:30
PROVIDERS: ADMIT Emergency Medicine; ATTEND Internal Medicine